=== PATIENT | male | born 1950 | race Caucasian/White ===

== ENCOUNTER 2019-11-06 14:06 | Inpatient (IN) | payer MEDICARE, OTHER, SELFPAY ==
[2019-11-06] VITALS (19 sets, daily range): BP systolic 122–163; BP diastolic 57–87; PULSE 66–89; RESP 20–41; TEMP 36.6–37.5; O2SAT 68–100; BMI 22.8
--- NOTE | ~2019-11-06 | XR_ITS ---
EXAMINATION: XR chest 2V DATE: 11/06/2019 15:29 INDICATION: Shortness of breath. TECHNIQUE: Frontal and lateral views of the chest were obtained. COMPARISON: Chest single view 06/04/2019, chest CT 06/04/2019 FINDINGS: The lungs are hyperexpanded with lucencies and architectural distortion, consistent with em physema. There are patchy airspace opacities in right upper lobe. No pleural effusion or pneumothorax . The heart size is normal. There is an old healed fracture of left clavicle. IMPRESSION: 1. Worsened airspace opacities in right upper lobe suspicious for pneumonia. Malignancy cannot be exc luded. Consider noncontrast chest CT. 2. Severe emphysema. Reviewed, dictated and finalized at location A. DRIVER CARPENTER IMPRESSION: 1. Worsened airspace opacities in right upper lobe suspicious for pneumonia. Ma lignancy cannot be excluded. Consider noncontrast chest CT. 2. Severe emphysema.
--- NOTE | ~2019-11-06 | CT_ITS ---
EXAMINATION:CT chest wo con DATE: 11/07/2019 11:14 INDICATION: Abnormal chest radiographs. TECHNIQUE: Computed tomography (CT) of the chest was performed without intravenous contrast. Automate d exposure control and iterative reconstruction technique were employed. The dose-length product (DLP ) was 172.50 mGy-cm. COMPARISON: Chest 2 views 11/06/2019, chest CT 06/04/2019, 12/06/2017 FINDINGS: There is severe emphysema. There are nodules left lung apex measuring up to 6 mm, stable fr om 12/06/2017. There is a 9 mm nodule in left lower lobe, new from 06/04/2019. There is a 10 mm nodule in left lung lower lobe that measured 5 mm on 06/04/2019. There is a new 6 mm nodule in left lower lob e. There is a chronic 4 mm nodule in left lower lobe. There is an 11 mm nodule in right lower lobe wi th central calcification, consistent with granulomatous disease. There are patchy airspace opacities and nodules in right upper lobe and superior segment right lower lobe with interval improvement. Ther e is a chronic 7 mm nodule in right lower lobe. There are multiple chronic smaller nodules in right l ower lobe. Calcified right lung nodules and calcified mediastinal lymph nodes are consistent with old granulomatous disease. No pleural effusion. The heart size is normal. No pericardial effusion. There is severe thoracic spondylosis. There is upper thoracic levoscoliosis. IMPRESSION: 1. Pulmonary nodules and airspace opacities with improvement in some areas and worsening in others, l ikely chronic infection. Noncontrast low-dose chest CT is recommended in 3 months to exclude malignan cy. 2. Severe emphysema. Reviewed, dictated and finalized at location A. OR CARE ASSISTANT IMPRESSION: 1. Pulmonary nodules and airspace opacities with improvement in some areas and worsening in others, likely chronic infection. Noncontrast low-dose chest CT is recommended in 3 months to exclude malignancy. 2. Severe emphysema.
--- NOTE | ~2019-11-06 | XR_ITS ---
EXAMINATION: XR chest 2V DATE: 11/08/2019 08:21 INDICATION: COPD and congestive heart failure presenting with cough TECHNIQUE: frontal and lateral views of the chest were obtained. COMPARISON: Chest radiograph dated 11/06/[address] dated 11/07/2019 FINDINGS: Emphysema with hyperexpansion of lungs and scattered increased lucency most prominent in the left upp er lung zone. Nodular, patchy and linear opacities in the right mid to upper lung zone. No pulmonary edema, pleural effusion or pneumothorax. The cardiomediastinal silhouette is normal. Calcified medias tinal lymph node consistent with old granulomatous disease. Old left clavicle fracture. IMPRESSION: 1. Unchanged opacities in the right mid and upper lung zone likely combination of atelectasis and inf ection although malignancy is not excluded both the nodular opacities and concur with recommendation for 3 month follow-up low-dose noncontrast chest CT. 2. Emphysema. Reviewed, dictated and finalized at location A. IOGNOMIST IMPRESSION: 1. Unchanged opacities in the right mid and upper lung zone likely combination of atelectasis and infection although malignancy is not excluded both the nodul ar opacities and concur with recommendation for 3 month follow-up low-dose nonc ontrast chest CT. 2. Emphysema.
--- NOTE | 2019-11-06 14:26 | ECG_ITS ---
Measurements Intervals [place] Rate: 80 P: 86 MN: 173 QRS: -77 QRSD: 143 T: 66 QT: 392 QTc: 452 Interpretive Statements SINUS RHYTHM INTRAVENTRICULAR CONDUCTION DELAY DELAYED PRECORDIAL R/S TRANSITION BORDERLINE ST ABNORMALITY- LATERAL LEADS BORDERLINE ECG Electronically Signed On 11-06-2019 15:09:54 [employer] BAG SEWER by Kevin Cervantes D.O.
[2019-11-06 14:58] LABS: Base Excess ABG -4.4 mmol/L (0-2); HCO3 ABG 23.5 mmol/L (23-29); Oxyhemoglobin 86.6 % (94-100); PCO2 ABG 55.2 mmHg (35-45); PO2 ABG 74.8 mmHg (75-85); Total Hemoglobin 13.9 g/dL; pH ABG 7.25 (7.35-7.45)
[2019-11-06 15:00] LABS: Hematocrit 39.7 % (37.0-46.0); Hemoglobin 12.9 g/dL (12.4-15.3); Mean Corpuscular HGB Conc 32.5 g/dL (32.0-36.0); Mean Corpuscular Hemoglobin 29.9 pg (27.0-31.0); Mean Corpuscular Volume 92.1 fL (78.0-102.0); Mean Platelet Volume 9.3 fl (8.7-11.0); Platelet Count Result 274 K/mm3 (150-420); Red Blood Count 4.31 M/mm3 (4.70-6.10); Red Cell Distribution Width 13.2 % (11.6-14.4); White Blood Count 8.6 K/mm3 (4.8-10.8)
[2019-11-06 15:01] LABS: Device NASAL CANNULA; Modified Allen's Test Pass; Site Drawn LEFT RADIAL
[2019-11-06] MEDS: ALBUTEROL SULFATE NEB 1.25 MG/3 ML INH INHALATION ×2 (15:01→20:22)
[2019-11-06 15:19] LABS: Alanine Aminotransferase 21 U/L (16-63); Albumin Level 3.5 g/dL (3.4-5.0); Alkaline Phosphatase 80 U/L (46-116); Anion Gap 13.8 mmol/L (7-16); Aspartate Amino Transferase 19 U/L (15-37); Bilirubin,Total 0.4 mg/dL (0.00-1.00); Blood Urea Nitrogen 16 mg/dL (7-18); Calcium 8.1 mg/dL (8.5-10.1); Carbon Dioxide 27 mmol/L (21-32); Chloride 93 mmol/L (98-108); Estimated CRCL calculation 74 ml/min; Estimated Glomerular Filt Rate > 60; Glucose 120 mg/dL (70-99); Osmolality Calculated 272 mOsm/kg (285-295); Potassium 3.8 mmol/L (3.5-5.1); Sodium 130 mmol/L (136-145); Total Protein 6.9 g/dL (6.4-8.2)
[2019-11-06 15:21] LABS: BNP 311 pg/mL (0-100)
[2019-11-06 15:21] LABS: Troponin I < 0.02 ng/mL (0.00-0.056)
[2019-11-06 15:23] LABS: Influenza Control Valid (Valid)
--- NOTE | 2019-11-06 15:36 | ED.SOB ---
HPI - SOB/Dyspnea General Chief Complaint: Shortness of Breath/Dyspnea Stated Complaint: sob Source: patient Mode of arrival: ambulatory Limitations: no limitations History of Present Illness HPI Narrative: 69-year-old male presents from his doctor's office after he presented to his physician with increasing shortness of breath cough is mildly productive with decreased oxygen saturations. Patient has some shortness of breath with a mild productive yellow sputum with shortness of breath with no chest pain low-grade fever and chills. Was given Solu-Medrol 125 mg while at his physician's office. Has been having symptoms that have worsened over the last couple of days, does have a history of COPD, CHF hypertension bipolar disorder. MD elicited complaint: shortness of breath and cough Pertinent past history: COPD and congestive heart failure Onset (ago): day(s) Context: recent illness and anxiety Severity: moderate Exacerbating factors: coughing and inspiration Relieving factors: oxygen, rest and bronchodilators Known history of: COPD and congestive heart failure Related Data Home Medications Medication Instructions Recorded Confirmed acetaminophen 500 mg capsule 500 mg PO Q6H 10/17/19 11/06/19 albuterol sulfate 90 mcg/actuation 1 inhalation INHALATION Q4H 10/17/19 11/06/19 aerosol inhaler amitriptyline 25 mg tablet 25 mg PO ONCE 10/17/19 11/06/19 aspirin 81 mg tablet,delayed 81 mg PO DAILY 10/17/19 11/06/19 release atorvastatin 10 mg tablet 10 mg PO DAILY 10/17/19 11/06/19 carvedilol 12.5 mg tablet 12.5 mg PO BID tablet 10/17/19 11/06/19 cyclobenzaprine 10 mg tablet 10 mg PO TID 10/17/19 11/06/19 diclofenac sodium 75 mg 75 mg PO BID 10/17/19 11/06/19 tablet,delayed release diphenhydramine HCl 50 mg capsule 50 mg PO Q6H 10/17/19 11/06/19 fluticasone 500 mcg-salmeterol 50 1 inhalation INHALATION Q12H 10/17/19 11/06/19 mcg/dose blistr powdr for inhalation fluticasone fur. 100 mcg-umeclid 1 inhalation INHALATION DAILY 10/17/19 11/06/19 62.5 mcg-vilant 25 mcg inhalat.powder fluticasone propionate 50 1 spray NASAL DAILY 10/17/19 11/06/19 mcg/actuation nasal spray,suspension folic acid 1 mg tablet 1 mg PO DAILY 10/17/19 11/06/19 lisinopril 20 mg tablet 20 mg PO DAILY 10/17/19 11/06/19 menthol 4 % topical gel 1 applic TOPICAL DAILY 10/17/19 11/06/19 onabotulinumtoxinA 100 unit 200 unit IM .Q 3 mo each 10/17/19 11/06/19 solution for injection risperidone 2 mg tablet 2 mg PO BID 10/17/19 11/06/19 sumatriptan succinate 100 mg tablet 100 mg PO ONCE 10/17/19 11/06/19 topiramate 25 mg capsule,extended 25 mg PO DAILY 10/17/19 11/06/19 release 24 hr verapamil 80 mg tablet 80 mg PO DAILY 10/17/19 11/06/19 famotidine 20 mg tablet 20 mg PO BID tablet 10/20/19 11/06/19 Allergies Allergy/AdvReac Type Severity Reaction Status Date / Time No Known Allergies Allergy Verified 10/20/19 12:57 Review of Systems Review of Systems: All systems reviewed & are unremarkable except as noted in HPI and below PMFSH Past Medical History Medical History Chronic obstructive pulmonary disease, unspecified Chronic systolic heart failure [place] (dyspnea on exertion) Dyslipidemia Essential hypertension Smoking Unspecified systolic (congestive) heart failure Social History Social History Smoking status: Smoker, status unknown Exam Const: General: no acute distress, alert and ill appearing Orientation/consciousness: patient oriented x3 HENMT: Head: normal to inspection Eyes: Conjunctivae: conjunctivae normal Pupils: Equal, round and reactive pupils present Neck: Neck: normal visual inspection and no lymphadenopathy Chest: Chest palpation & inspection: normal inspection of the chest and abnormal inspection of the chest Resp: Effort & Inspection: tachypneic Auscultation: wheezes and diminished lung sounds
[2019-11-06] MEDS: FUROSEMIDE INJ 40 MG/4 ML VIAL IV PUSH (15:53)
--- NOTE | 2019-11-06 15:53 | PC.NURSE ---
RN REQUESTED INPATIENT ROOM FROM [facility] AT 1545. ROOM 208 PROVIDED. REGISTRATION NOTIFIED. AWAITING COMPLETED ORDERS BY ERP BEFORE CALLING REPORT.
--- NOTE | 2019-11-06 16:30 | PC.NURSE ---
Patient admitted to floor from ED, brought up per wheelchair. O2 @ 2L per nasal cannula. Patient transferred self to bed. Patient oriented to room and call light. Patient in bed with head of bed elevated.
--- NOTE | 2019-11-06 16:39 | PC.NURSE ---
UNABLE TO ENTER STOP TIME FOR IV ANTIBIOTICS DUE TO PT BEING TRANSFERRED TO ROOM 208 WHILE INFUSING. PLEASE SEE MEDICAL-RANGE MOUNTER CHARTING FOR STOP TIME.
[2019-11-06] MEDS: FAMOTIDINE 20 MG TABLET PO (18:01)
[2019-11-06] MEDS: risperiDONE 1 MG TABLET 2 MG PO (18:01)
[2019-11-06] MEDS: methylPREDNISolone SOD SUCC 40 MG VIAL 60 MG IV PUSH ×2 (18:02→21:29)
[2019-11-06] MEDS: DICLOFENAC SOD 75 MG TABLET.EC PO (18:02)
[2019-11-06] MEDS: carvediloL 12.5 MG TABLET PO (18:02)
[2019-11-06] MEDS: AMITRIPTYLINE HCL 25 MG TABLET PO (20:38)
[2019-11-06] MEDS: OSELTAMIVIR PHOSPHATE 75 MG CAP PO (20:38)
--- NOTE | 2019-11-06 21:40 | PC.NURSE ---
O2 continues 2L per nc Telemetry SR.
[2019-11-07] VITALS (22 sets, daily range): BP systolic 118–147; BP diastolic 60–81; PULSE 64–108; RESP 13–24; TEMP 36.6–37.2; O2SAT 91–98
[2019-11-07] MEDS: ALBUTEROL SULFATE NEB 1.25 MG/3 ML INH INHALATION (05:43)
--- NOTE | 2019-11-07 08:01 | PC.NURSE ---
SITTING UP IN BED EATING BREAKFAST, [place] NOTED, WITH SOME EXPIRATORY WHEEZE, OXYGEN ON AT 2L NC
[2019-11-07] MEDS: FAMOTIDINE 20 MG TABLET PO ×2 (08:34→16:54)
[2019-11-07] MEDS: ASPIRIN 81 MG ENTERIC TABLET PO (08:34)
[2019-11-07] MEDS: lisinopriL 20 MG TABLET PO (08:34)
[2019-11-07] MEDS: OSELTAMIVIR PHOSPHATE 75 MG CAP PO ×2 (08:34→21:03)
[2019-11-07] MEDS: ATORVASTATIN 10 MG TABLET PO (08:35)
[2019-11-07] MEDS: risperiDONE 1 MG TABLET 2 MG PO ×2 (08:35→16:54)
[2019-11-07] MEDS: carvediloL 12.5 MG TABLET PO ×2 (08:35→16:54)
[2019-11-07] MEDS: FOLIC ACID 1 MG TABLET PO (08:36)
[2019-11-07] MEDS: TOPIRAMATE 25 MG TABLET PO (08:36)
[2019-11-07] MEDS: DICLOFENAC SOD 75 MG TABLET.EC PO ×2 (08:36→16:54)
[2019-11-07] MEDS: methylPREDNISolone SOD SUCC 125 MG VIAL 60 MG IV PUSH (09:01)
--- NOTE | 2019-11-07 09:02 | PC.NURSE ---
Addendum entered by Nia Diallo RN 11/07/19 09:02: WRONG PATIENT CHART Original Note: DOES OPEN EYES TO VERBAL STIMULATION, NON VERBAL, DOES MOAN OCCASSIONALLY, FLUIDS INFUSING, TELEMETRY ST
--- NOTE | 2019-11-07 09:03 | PC.NURSE ---
LOOSE COUGH NOTED, [place] NOTED WITH MOVEMENT IN BED, TELEMETRY ST, OXYGEN ON AT 2L NC
[2019-11-07 09:14] LABS: Hematocrit 37.6 % (37.0-46.0); Hemoglobin 12.8 g/dL (12.4-15.3); Immature Granulocyte Absolute 0.03 K/mm3 (0.00-0.00); Immature Granulocyte Percent A 0.4 % (0.0-0.0); Lymphocytes Absolute Auto 0.42 K/mm3 (1.10-4.50); Lymphocytes Percent Auto 5.4 % (18.0-42.0); Mean Corpuscular Hemoglobin 30.5 pg (27.0-31.0); Mean Corpuscular Volume 89.5 fL (78.0-102.0); Mean Platelet Volume 9.3 fl (8.7-11.0); Monocytes Absolute Auto 0.45 K/mm3 (0.10-0.90); Monocytes Percent Auto 5.8 % (2.0-11.0); Neutrophils Absolute Auto 6.9 K/mm3 (1.7-7.2); Neutrophils Percent Auto 88.4 % (50.0-70.0); Platelet Count Result 274 K/mm3 (150-420); Red Cell Distribution Width 13.2 % (11.6-14.4); White Blood Count 7.8 K/mm3 (4.8-10.8)
[2019-11-07 09:30] LABS: Alanine Aminotransferase 22 U/L (16-63); Albumin Level 3.2 g/dL (3.4-5.0); Alkaline Phosphatase 73 U/L (46-116); Aspartate Amino Transferase 23 U/L (15-37); Bilirubin,Total 0.3 mg/dL (0.00-1.00); Blood Urea Nitrogen 19 mg/dL (7-18); Calcium 8.2 mg/dL (8.5-10.1); Carbon Dioxide 30 mmol/L (21-32); Chloride 96 mmol/L (98-108); Estimated CRCL calculation 78 ml/min; Estimated Glomerular Filt Rate > 60; Glucose 154 mg/dL (70-99); Osmolality Calculated 285 mOsm/kg (285-295); Sodium 135 mmol/L (136-145); Total Protein 6.8 g/dL (6.4-8.2)
[2019-11-07 09:33] LABS: BNP 288 pg/mL (0-100)
--- NOTE | 2019-11-07 10:59 | PC.NURSE ---
To imaging via WC, mask in place
--- NOTE | 2019-11-07 11:09 | PC.NURSE ---
Returned from imaging, cardiopulmonary in room with patient
[2019-11-07 11:20] LABS: Base Excess ABG -1.4 mmol/L (0-2); Oxygen Content ABG 18.9 %vol (16.0-22.0); Oxygen Saturation ABG 96.3 % (95-97); Oxyhemoglobin 94.1 % (94-100); PCO2 ABG 69.9 mmHg (35-45); PO2 ABG 88.7 mmHg (75-85); Site Drawn LEFT RADIAL; Total Hemoglobin 14.2 g/dL; pH ABG 7.22 (7.35-7.45)
[2019-11-07 11:21] LABS: Device NASAL CANNULA; Modified Allen's Test Pass
--- NOTE | 2019-11-07 11:30 | PC.NURSE ---
Cardio at the bedside, attempt airvo at this time
--- NOTE | 2019-11-07 12:05 | PC.NURSE ---
Lunch tray held at this time, wheezing some worse and color dusky, cardio in room and placing on bipap, more comfortable with bipap in place, telemetry SR 90
--- NOTE | 2019-11-07 12:51 | PM.IMHP ---
H&P: HPI History of Present Illness Chief complaint: sob <PRERNA Cortes - Last Filed: 11/07/19 13:52> Narrative: Lui Goodwin is a 69 year old male that presented to the ED with complaints of shortness of breath and dyspnea patient has a past medical history of COPD, systolic congestive heart failure, dyspnea exertion, dyslipidemia, essential hypertension, and smoking dependant patient is being admitted for pneumonia ,influenza A and COPD Exacerbation. patient was extremely short of breath with labored breathing and was unable to give me any history. According to the notes patient presented to his doctor's office yesterday due to his shortness of breath, dyspnea ,productive cough with yellow sputum, low-grade fever and chills he was given Solu-Medrol 125 mg at his doctor's office. his symptoms have worsened over the last couple days so he decided to come to the ED. While in the ED a chest x-ray was completed that indicated severe emphysema and suspicious of pneumonia he also tested positive influenza a, his BNP was elevated to 311 with an abnormal blood gas pH is 7.25, CO2 is 55.2, PO2 is 74.8 and bicarb at 23.5. patient's current vital signs are 366, 93, 20, 91% 2 L nasal cannula and 118/75. Patient is currently on Rocephin and Tamiflu. Patient does appear to be in respiratory distress will do repeat ABG possibly high-flow oxygen or BiPAP, steroids with cough medication with the decongestion added. I will closely monitor this patient. <PRERNA Cortes - Last Filed: 11/07/19 13:52> Review of Systems Review of Systems: ROS unobtainable: unobtainable due to mental condition <PRERNA Cortes - Last Filed: 11/07/19 13:52> [facility] Past Medical History Medical History: Medical History Chronic obstructive pulmonary disease, unspecified Chronic systolic heart failure [place] (dyspnea on exertion) Dyslipidemia Essential hypertension Smoking Unspecified systolic (congestive) heart failure <PRERNA Cortes - Last Filed: 11/07/19 13:52> Social History Social History: Social History Smoking packs per day: 0.5 Smoking cigarettes per day: 10.0 Years smoked: 50 Smoking pack-years: 25.00 Smoking status: Current every day smoker Tobacco type: cigarettes Alcohol intake: former Drinks per week: 0 Substance use: never Gender identity (if verbalized by the patient): Male Spiritual care concerns: No Agree to blood products: Yes <Belen Webb, DELANEY-Deborah - Last Filed: 11/07/19 13:52> Meds Home Medications and Allergies Home medications: Home Medications Medication Instructions Recorded Confirmed Type acetaminophen 500 mg capsule 500 mg PO Q6H 10/17/19 11/06/19 History albuterol sulfate 90 mcg/actuation 1 inhalation INHALATION Q4H 10/17/19 11/06/19 History aerosol inhaler amitriptyline 25 mg tablet 25 mg PO ONCE 10/17/19 11/06/19 History aspirin 81 mg tablet,delayed 81 mg PO DAILY 10/17/19 11/06/19 History release atorvastatin 10 mg tablet 10 mg PO DAILY 10/17/19 11/06/19 History carvedilol 12.5 mg tablet 12.5 mg PO BID tablet 10/17/19 11/06/19 History cyclobenzaprine 10 mg tablet 10 mg PO TID 10/17/19 11/06/19 History diclofenac sodium 75 mg 75 mg PO BID 10/17/19 11/06/19 History tablet,delayed release diphenhydramine HCl 50 mg capsule 50 mg PO Q6H 10/17/19 11/06/19 History fluticasone 500 mcg-salmeterol 50 1 inhalation INHALATION Q12H 10/17/19 11/06/19 History mcg/dose blistr powdr for inhalation fluticasone fur. 100 mcg-umeclid 1 inhalation INHALATION DAILY 10/17/19 11/06/19 History 62.5 mcg-vilant 25 mcg inhalat.powder fluticasone propionate 50 1 spray NASAL DAILY 10/17/19 11/06/19 History mcg/actuation nasal spray,suspension folic acid 1 mg tablet 1 mg PO DAILY 10/17/19 11/06/19 History lisinopril 20 mg ta
--- NOTE | 2019-11-07 12:55 | PC.NURSE ---
color pink, warm and dry, bipap in place, resting more comfortable, no change in settings
[2019-11-07 12:58] LABS: Base Excess ABG 3.2 mmol/L (0-2); HCO3 ABG 31.3 mmol/L (23-29); Oxygen Content ABG 18.1 %vol (16.0-22.0); Oxygen Saturation ABG 94.4 % (95-97); Oxyhemoglobin 92.3 % (94-100); PCO2 ABG 63.6 mmHg (35-45); PO2 ABG 71.1 mmHg (75-85); Total Hemoglobin 13.9 g/dL; pH ABG 7.31 (7.35-7.45)
[2019-11-07 12:59] LABS: Device BIPAP; Modified Allen's Test Pass; Site Drawn LEFT RADIAL
[2019-11-07] MEDS: methylPREDNISolone SOD SUCC 125 MG VIAL IV PUSH ×2 (13:05→17:51)
[2019-11-07] MEDS: FUROSEMIDE INJ 40 MG/4 ML VIAL IV PUSH (13:05)
--- NOTE | 2019-11-07 13:05 | PC.NURSE ---
lasix 40mg IV and solumedrol 125mg given IV as ordered
--- NOTE | 2019-11-07 13:11 | PC.NURSE ---
no further wheezing at this time, increased air movement per auscultation
--- NOTE | 2019-11-07 13:40 | PC.NURSE ---
Eating lunch, bipap removed and on NC at this time, more talkative
--- NOTE | 2019-11-07 14:15 | PC.NURSE ---
Finished with lunch, bipap mask re applied, no change in settings, cardio at the bedside checking patient
[2019-11-07] MEDS: BENZONATATE 100 MG CAPSULE 200 MG PO ×2 (14:23→16:53)
[2019-11-07] MEDS: ALBUTEROL SULFATE NEB 2.5 MG/3 ML INH INHALATION (14:25)
[2019-11-07] MEDS: ENOXAPARIN 40 MG/0.4 ML SYRINGE SUB-Q (14:27)
--- NOTE | 2019-11-07 14:36 | PC.NURSE ---
Resting with HOB elevated, just finished neb treatment, placed back on bipap
[2019-11-07] MEDS: VERAPAMIL HCL 80 MG TABLET PO (17:51)
[2019-11-07] MEDS: IPRATROPIUM 0.5 MG/ALBUTEROL SULFATE 2.5 MG AMPUL.NEB 3 ML INHALATION (17:51)
[2019-11-07] MEDS: BUDESONIDE/FORMOTEROL (*SP) 160-4.5 MCG 6 GM INH 2 PUFF INHALATION (17:51)
[2019-11-07] MEDS: AMITRIPTYLINE HCL 25 MG TABLET PO (21:03)
[2019-11-08] VITALS (19 sets, daily range): BP systolic 129–147; BP diastolic 65–77; PULSE 56–95; RESP 18–20; TEMP 36.9–37.3; O2SAT 93–95
[2019-11-08] MEDS: IPRATROPIUM 0.5 MG/ALBUTEROL SULFATE 2.5 MG AMPUL.NEB 3 ML INHALATION ×4 (00:09→18:18)
[2019-11-08] MEDS: methylPREDNISolone SOD SUCC 125 MG VIAL IV PUSH ×2 (00:09→09:09)
[2019-11-08 05:31] LABS: Hemoglobin 13.2 g/dL (12.4-15.3); Mean Corpuscular HGB Conc 33.8 g/dL (32.0-36.0); Mean Corpuscular Hemoglobin 30.8 pg (27.0-31.0); Mean Corpuscular Volume 90.9 fL (78.0-102.0); Mean Platelet Volume 9.3 fl (8.7-11.0); Platelet Count Result 280 K/mm3 (150-420); Red Blood Count 4.29 M/mm3 (4.70-6.10); Red Cell Distribution Width 13.2 % (11.6-14.4); White Blood Count 9.4 K/mm3 (4.8-10.8)
[2019-11-08 05:45] LABS: Alanine Aminotransferase 23 U/L (16-63); Albumin Level 3.2 g/dL (3.4-5.0); Alkaline Phosphatase 68 U/L (46-116); Anion Gap 9.1 mmol/L (7-16); Aspartate Amino Transferase 21 U/L (15-37); Bilirubin,Total 0.3 mg/dL (0.00-1.00); Blood Urea Nitrogen 24 mg/dL (7-18); Calcium 8.4 mg/dL (8.5-10.1); Carbon Dioxide 35 mmol/L (21-32); Chloride 97 mmol/L (98-108); Estimated CRCL calculation 79 ml/min; Estimated Glomerular Filt Rate > 60; Glucose 134 mg/dL (70-99); Osmolality Calculated 290 mOsm/kg (285-295); Potassium 4.1 mmol/L (3.5-5.1); Sodium 137 mmol/L (136-145); Total Protein 6.7 g/dL (6.4-8.2)
[2019-11-08 05:48] LABS: Lactic Acid Reflex 1.3 mmol/L (0.4-2.0)
[2019-11-08 05:49] LABS: BNP 239 pg/mL (0-100)
--- NOTE | 2019-11-08 06:58 | P.PNCROSS_ITS ---
Event Note Event Note Event Note: Late entry. Pt. seen on 11/07/2019 For this patient encounter, I reviewed the INTEL RECRUITER or PA documentation, treatment plan, and medical decision making; and I had [id number] time with this patient. Pt laying supine, labored respiration, tachypnea, audible wheezes, decreased breath sounds with scattered wheezes. Agree with trial of BiPap
--- NOTE | 2019-11-08 06:58 | PM.EVENT ---
Event Note Event Note Event Note: Late entry. Pt. seen on 11/07/2019 For this patient encounter, I reviewed the WHITE MIXING OPERATOR or PA documentation, treatment plan, and medical decision making; and I had [id number] time with this patient. Pt laying supine, labored respiration, tachypnea, audible wheezes, decreased breath sounds with scattered wheezes. Agree with trial of BiPap
--- NOTE | 2019-11-08 08:10 | PC.NURSE ---
WAnting to go home, feeling better, color improved, slight schrader noted, oxygen on at 4L NC
[2019-11-08] MEDS: BUDESONIDE/FORMOTEROL (*SP) 160-4.5 MCG 6 GM INH 2 PUFF INHALATION ×2 (08:46→17:18)
[2019-11-08] MEDS: VERAPAMIL HCL 80 MG TABLET PO ×2 (08:46→17:20)
[2019-11-08] MEDS: FAMOTIDINE 20 MG TABLET PO ×2 (08:47→17:19)
[2019-11-08] MEDS: OSELTAMIVIR PHOSPHATE 75 MG CAP PO ×2 (08:47→20:55)
[2019-11-08] MEDS: FOLIC ACID 1 MG TABLET PO (08:48)
[2019-11-08] MEDS: lisinopriL 20 MG TABLET PO (08:48)
[2019-11-08] MEDS: BENZONATATE 100 MG CAPSULE 200 MG PO ×3 (08:48→17:20)
[2019-11-08] MEDS: FUROSEMIDE 40 MG TABLET PO (08:49)
[2019-11-08] MEDS: risperiDONE 1 MG TABLET 2 MG PO ×2 (08:49→17:19)
[2019-11-08] MEDS: TOPIRAMATE 25 MG TABLET PO (08:49)
[2019-11-08] MEDS: ASPIRIN 81 MG ENTERIC TABLET PO (08:50)
[2019-11-08] MEDS: carvediloL 12.5 MG TABLET PO ×2 (08:50→17:19)
[2019-11-08] MEDS: DICLOFENAC SOD 75 MG TABLET.EC PO ×2 (08:50→17:19)
[2019-11-08] MEDS: ATORVASTATIN 10 MG TABLET PO (08:50)
--- NOTE | 2019-11-08 11:41 | PM.IMPN ---
Progress Note: A&P Assessment and Plan (1) Pneumonia: Qualifiers: Laterality: right Lung location: upper lobe of lung Pneumonia type: due to unspecified organism Qualified Code(s): J18.9 - Pneumonia, unspecified organism Code(s): J18.9 - Pneumonia, unspecified organism Status: Acute Assessment and Plan: unstable chest x-ray suspicious of pneumonia - blood cultures pending - continue Rocephin - wbc's within normal limits, patient currently afebrile - patient on BiPAP overnigh with improvement on BiPAP. currently on NC - will repeat CBC in the a.m. - will continue to monitor vital signs for fever - Tylenol added for fever - continue duo nebulizer with p.r.n. albuterol treatments - continue use of steroids - continue anti the congestion and cough medication -. Unchanged opacities in the right mid and upper lung zone likely combination of atelectasis and infection although malignancy is not excluded both the nodular opacities and concur with recommendation for 3 month follow-up low-dose noncontrast chest CT. 2. Emphysema (2) Influenza A: Code(s): J10.1 - Influenza due to other identified influenza virus with other respiratory manifestations Status: Acute Assessment and Plan: continue Tamiflu and till November 11 - continue droplet isolation (3) Pulmonary nodule: Code(s): R91.1 - Solitary pulmonary nodule Status: Acute Assessment and Plan: possibly secondary to infection - chest x-ray indicates worsening opacities in right upper lobe suspicious for pneumonia malignancy cannot be excluded considered non contrast chest CT and severe emphysema - CT indication pulmonary nodules and airspace opacities with improvement in some areas and worsening in others, likely chronic infection. Noncontrast low-dose chest CT is recommended in 3 months to exclude malignancy and severe emphysema. - Continue to treat pneumonia and influenza a. - Patient will need to follow-up with PCP in [address] (4) Smoking: Code(s): F17.200 - Nicotine dependence, unspecified, uncomplicated Status: Acute Assessment and Plan: patient educated on smoking sensation - continue use of nicotine patch (5) Chronic obstructive pulmonary disease, unspecified: Code(s): J44.9 - Chronic obstructive pulmonary disease, unspecified Status: Acute Assessment and Plan: unstable worsening due to pneumonia and influenza chest x-ray suspicious of pneumonia - blood cultures pending - cont Rocephin - wbc's within normal limits, patient currently afebrile - will repeat CBC in the a.m. - will continue to monitor vital signs for fever - Tylenol added for fever - continue duo nebulizer with p.r.n. albuterol treatments - continue use of steroids - continue anti the congestion and cough medication - (6) Essential hypertension: Code(s): I10 - Essential (primary) hypertension Status: Acute Assessment and Plan: blood pressurestable continue lisinopril and carvedilol - continue vital signs as ordered - will adjust medication as needed (7) Chronic systolic heart failure: Code(s): I50.22 - Chronic systolic (congestive) heart failure Status: Acute Assessment and Plan: uncompensated BNP on admission 311 Lasix given in ER, currently BNP is 288 - cont scheduled Lasix , Patient will discharge home low-dose Lasix - monitor I&Os - weight patient daily (8) Acute respiratory distress: Code(s): R06.03 - Acute respiratory distress Status: Acute Assessment and Plan: possibly secondary to pneumonia, influenza a and chronic COPD unstable chest x-ray suspicious of pneumonia - blood cultures pending - continue Rocephin - wbc's within normal limits, patient currently afebrile - patient use BiPAP overnight with improvements currently on nasal cannula - will repeat CBC in the a.m. - will continue to monito
[2019-11-08] MEDS: ENOXAPARIN 40 MG/0.4 ML SYRINGE SUB-Q (13:12)
[2019-11-08] MEDS: methylPREDNISolone SOD SUCC 125 MG VIAL 80 MG IV PUSH ×2 (13:12→20:56)
--- NOTE | 2019-11-08 15:50 | PC.NURSE ---
Resting in bed, no acute distress, telemetry SR 60's, oxygen on at 2L NC
--- NOTE | 2019-11-08 17:11 | PC.NURSE ---
SN emptied 600 cc of clear yellow urine from urinal.
--- NOTE | 2019-11-08 18:14 | PC.NURSE ---
Remains on 2L NC, no acute distress, continues to have loose productive cough,
[2019-11-08] MEDS: AMITRIPTYLINE HCL 25 MG TABLET PO (20:55)
--- NOTE | 2019-11-08 21:07 | PC.NURSE ---
Pt refuses to wear bipap machine at this time, discussed with him the need for it and educated him on signs and symptoms that would require need for the bipap
[2019-11-09] VITALS (15 sets, daily range): BP systolic 113–133; BP diastolic 67–86; PULSE 53–92; RESP 18–20; TEMP 36.9; O2SAT 82–97
[2019-11-09] MEDS: IPRATROPIUM 0.5 MG/ALBUTEROL SULFATE 2.5 MG AMPUL.NEB 3 ML INHALATION ×2 (00:04→05:32)
[2019-11-09 05:39] LABS: Hematocrit 39.6 % (37.0-46.0); Hemoglobin 13.2 g/dL (12.4-15.3); Mean Corpuscular HGB Conc 33.3 g/dL (32.0-36.0); Mean Corpuscular Hemoglobin 30.3 pg (27.0-31.0); Mean Corpuscular Volume 90.8 fL (78.0-102.0); Mean Platelet Volume 9.4 fl (8.7-11.0); Platelet Count Result 304 K/mm3 (150-420); Red Blood Count 4.36 M/mm3 (4.70-6.10); Red Cell Distribution Width 13.2 % (11.6-14.4); White Blood Count 11.1 K/mm3 (4.8-10.8)
[2019-11-09] MEDS: methylPREDNISolone SOD SUCC 125 MG VIAL 80 MG IV PUSH ×2 (05:49→13:09)
[2019-11-09] MEDS: BUDESONIDE/FORMOTEROL (*SP) 160-4.5 MCG 6 GM INH 2 PUFF INHALATION (05:50)
[2019-11-09 05:53] LABS: Alanine Aminotransferase 25 U/L (16-63); Albumin Level 3.1 g/dL (3.4-5.0); Alkaline Phosphatase 61 U/L (46-116); Aspartate Amino Transferase 21 U/L (15-37); Bilirubin,Total 0.3 mg/dL (0.00-1.00); Blood Urea Nitrogen 29 mg/dL (7-18); Calcium 8.6 mg/dL (8.5-10.1); Carbon Dioxide 36 mmol/L (21-32); Chloride 98 mmol/L (98-108); Estimated CRCL calculation 76 ml/min; Estimated Glomerular Filt Rate > 60; Glucose 123 mg/dL (70-99); Osmolality Calculated 292 mOsm/kg (285-295); Sodium 138 mmol/L (136-145); Total Protein 6.1 g/dL (6.4-8.2)
[2019-11-09 05:55] LABS: BNP 272 pg/mL (0-100)
--- NOTE | 2019-11-09 07:45 | PC.NURSE ---
Oxygen removed at this time, advised to make sure to call us if felt SOB
--- NOTE | 2019-11-09 08:30 | PC.NURSE ---
room air sat 82%, denies sob at rest, no distress noted, states feeling better
[2019-11-09] MEDS: VERAPAMIL HCL 80 MG TABLET PO (09:22)
[2019-11-09] MEDS: FAMOTIDINE 20 MG TABLET PO (09:23)
[2019-11-09] MEDS: FOLIC ACID 1 MG TABLET PO (09:23)
[2019-11-09] MEDS: OSELTAMIVIR PHOSPHATE 75 MG CAP PO (09:23)
[2019-11-09] MEDS: ASPIRIN 81 MG ENTERIC TABLET PO (09:23)
[2019-11-09] MEDS: lisinopriL 20 MG TABLET PO (09:23)
--- NOTE | 2019-11-09 09:23 | HOMEO2EVAL ---
Home Oxygen Evaluation RC: Home Oxygen (O2) Evaluation Start: 11/09/19 08:43 Freq: ONCE Status: Active Protocol: RPE Activity Type Activity Date Activity User E-Sign Co-Sign Detail Recorded Client Recorded Date Recorded By Document 11/09/19 09:05 SJB [id number] 11/09/19 09:23 SJB Document 11/09/19 09:08 SJB [id number] 11/09/19 09:23 SJB Document 11/09/19 09:10 SJB [id number] 11/09/19 09:23 SJB Document 11/09/19 09:17 SJB [id number] 11/09/19 09:23 SJB 11/09/19 11/09/19 11/09/19 09:05 09:08 09:10 Home O2 Evaluation Test Phase Resting Resting Resting Oxygen Delivery Room Air Nasal Cannula Nasal Cannula Oxygen Flow Rate (L/min) 2 3 Pulse Oximetry (90-100 %) 84 L 88 L 92 Pulse Rate (60-100 beats/min) 80 78 74 Activity Tolerance Rating of Perceived Dyspnea (PD) Rate of Perceived Exertion (PE) Ambulation Distance (feet) Home Oxygen Evaluation Comments Will increase Will begin walk oxygen to 3 lpm on 3 lpm at rest prior oxygen. to walk Treatment Charges O2 Evaluation 11/09/19 09:17 Home O2 Evaluation Test Phase Exercise Oxygen Delivery Oxygen Flow Rate (L/min) 3 Pulse Oximetry (90-100 %) 93 Pulse Rate (60-100 beats/min) 92 Activity Tolerance Good Rating of Perceived Dyspnea (PD) +2 Mild, Some Difficulty, Noticeable to the Observer Rate of Perceived Exertion (PE) 12 Ambulation Distance (feet) 375 Home Oxygen Evaluation Comments Pt walked approx 375 ft on 3 lpm with sp02s staying between 92-94% Nadia well. PLB encouraged. Treatment Charges
[2019-11-09] MEDS: BENZONATATE 100 MG CAPSULE 200 MG PO ×2 (09:24→13:10)
[2019-11-09] MEDS: risperiDONE 1 MG TABLET 2 MG PO (09:24)
[2019-11-09] MEDS: carvediloL 12.5 MG TABLET PO (09:25)
[2019-11-09] MEDS: DICLOFENAC SOD 75 MG TABLET.EC PO (09:25)
[2019-11-09] MEDS: FUROSEMIDE 40 MG TABLET PO (09:25)
[2019-11-09] MEDS: TOPIRAMATE 25 MG TABLET PO (09:25)
[2019-11-09] MEDS: ATORVASTATIN 10 MG TABLET PO (09:25)
--- NOTE | 2019-11-09 11:30 | PC.NURSE ---
Doesn't wish to stay another night, refusing home oxygen set up, states feeling better, hospitalist and physician aware
--- NOTE | 2019-11-09 12:11 | PM.DS ---
DS: Diagnosis Admitting Diagnosis Admitting Diagnosis: Chronic obstructive pulmonary disease with (acute) exacerbation Discharge Diagnosis (1) Pneumonia: Qualifiers: Laterality: right Lung location: upper lobe of lung Pneumonia type: due to unspecified organism Qualified Code(s): J18.9 - Pneumonia, unspecified organism Code(s): J18.9 - Pneumonia, unspecified organism Status: Acute Assessment and Plan: unstable chest x-ray suspicious of pneumonia - patient will discharged against medical advice will discharge him with antibiotics, decongestants, cough suppressants in prednisone - and wound to get a repeat CT in 3 months -. Unchanged opacities in the right mid and upper lung zone likely combination of atelectasis and infection although malignancy is not excluded both the nodular opacities and concur with recommendation for 3 month follow-up low-dose noncontrast chest CT. 2. Emphysema (2) Influenza A: Code(s): J10.1 - Influenza due to other identified influenza virus with other respiratory manifestations Status: Acute Assessment and Plan: patient will discharge withTamiflu and till November 11 (3) Pulmonary nodule: Code(s): R91.1 - Solitary pulmonary nodule Status: Acute Assessment and Plan: possibly secondary to infection - chest x-ray indicates worsening opacities in right upper lobe suspicious for pneumonia malignancy cannot be excluded considered non contrast chest CT and severe emphysema - CT indication pulmonary nodules and airspace opacities with improvement in some areas and worsening in others, likely chronic infection. Noncontrast low-dose chest CT is recommended in 3 months to exclude malignancy and severe emphysema. - Continue to treat pneumonia and influenza a. - Patient will need to follow-up with PCP in [address] (4) Smoking: Code(s): F17.200 - Nicotine dependence, unspecified, uncomplicated Status: Acute Assessment and Plan: patient educated on smoking sensation - patient refused nicotine patch (5) Chronic obstructive pulmonary disease, unspecified: Code(s): J44.9 - Chronic obstructive pulmonary disease, unspecified Status: Acute Assessment and Plan: unstable worsening due to pneumonia and influenza - home O2 indicates that patient needs 3 L nasal cannula to stay above 90%, patient refuses to use oxygen and will leave AMA today chest x-ray suspicious of pneumonia - patient will discharge with antibiotics, Tamiflu, steroids, D congestion and cough suppressant - he has inhalers at his facility that he refuses to use - (6) Essential hypertension: Code(s): I10 - Essential (primary) hypertension Status: Acute Assessment and Plan: blood pressurestable continue lisinopril and carvedilol (7) Chronic systolic heart failure: Code(s): I50.22 - Chronic systolic (congestive) heart failure Status: Acute Assessment and Plan: uncompensated BNP on admission 311 - patient will discharge with Lasix and potassium - labs ordered for 1 week to monitor renal function and potassium level - results sent to primary care physician - patient instructed to make an appointment with primary care physician in 1-2 weeks (8) Acute respiratory distress: Code(s): R06.03 - Acute respiratory distress Status: Acute Assessment and Plan: possibly secondary to pneumonia, influenza a and chronic COPD unstable chest x-ray suspicious of pneumonia refer to pneumonia, influenza and COPD DS: Summary Hospital Course Hospital Course: patient admitted 11/07/2019 this is the H&P note Lui Goodwin is a 69 year old male that presented to the ED with complaints of shortness of breath and dyspnea patient has a past medical history of COPD, systolic congestive heart failure, dyspnea exertion, dyslipidemia, essential hypertension, and smoki
--- NOTE | 2019-11-09 13:18 | PC.NURSE ---
saline lock removed in tact from RAC, pressure dressing applied, telemetry removed, AMA formed was signed, awaiting ride home
--- NOTE | 2019-11-09 13:28 | PC.NURSE ---
1140 Patient doesn't want to stay in hospital and doesn't not want us to order home O2 for him which he qualifies for. Patient informed of rights and that is wanted to go home would have to leave against Medical Advice. Patient in agreement and form signed and witness.
--- NOTE | 2019-11-09 14:25 | PC.NURSE ---
Discharge to home via wheel chair, aide from skilled nursing care here for patient, reviewed discharge instructions and medications with patient
--- NOTE | 2019-11-09 15:54 | PM.EVENT ---
Event Note Event Note Event Note: 69-year-old man with COPD admitted for shortness of breath, CAP and influenza 3 days ago. Still requiring 2 L by nasal cannula this morning but states that his breathing is much better. He denies chest pain, nausea vomiting, and sweating. H SpO2 is 83% on room air. Began process by which we get him home oxygen but the patient refused and has been refusing home nebs and treatments at assisted living. He wants to sign out. Very mild increase work of breathing with late expiratory wheezing. Decreased breath sounds throughout and poor air movement. Regular rate and rhythm without murmur. No extremity edema. Patient has pad of his need for further treatment was to sign out AMA and understands the complications that could present including respiratory failure and . He will be discharged on steroids antibiotics and inhalers And has instructions to follow up very soon with his PCP.
--- NOTE | 2019-11-10 12:58 | PC.NURSE ---
Discharge call back [phone] Spoke with [facility], no questions at this time. All discharge instructions given were understood.
== END 2019-11-09 14:25 | disposition left against medical advice (07) | DRG 193 ==
LOC: CHSED 15:55 → CHS2ND 16:11
PROVIDERS: Nurse Practitioner; Admitting Provider Emergency Medicine; Emergency Provider Emergency Medicine; PCP Internal Medicine; Visit Provider Emergency Medicine
DX: J10.00 Influenza due to other identified influenza virus with unspecified type of pneumonia; J18.9 Pneumonia, unspecified organism; I11.0 Hypertensive heart disease with heart failure; F31.9 Bipolar disorder, unspecified; I50.22 Chronic systolic (congestive) heart failure; E78.5 Hyperlipidemia, unspecified; I50.23 Acute on chronic systolic (congestive) heart failure; J44.0 Chronic obstructive pulmonary disease with (acute) lower respiratory infection; J44.1 Chronic obstructive pulmonary disease with (acute) exacerbation; F17.200 Nicotine dependence, unspecified, uncomplicated
CPT/HCPCS: 36415; 36600; 71046; 71250; 80053; 82805; 83605; 83880; 84484; 85025; 85027; 87040; 87081; 87804; 93005; 94002; 94618; 94640; 96374; 96375; 99285; A9270; J0456; J0696; J1650; J1940; J2920; J2930

== ENCOUNTER 2020-07-08 08:33 | Outpatient (CLI) | payer MEDICARE, MEDICAID, SELFPAY ==
[2020-07-08 08:45] VITALS: PULSE 68; O2SAT 96
[2020-07-08 08:46] VITALS: PULSE 77; O2SAT 95
--- NOTE | 2020-07-08 08:56 | HOMEO2EVAL ---
Home Oxygen Evaluation RC: Home Oxygen (O2) Evaluation Start: 07/08/20 08:51 Freq: Status: Active Protocol: RPE Activity Type Activity Date Activity User E-Sign Co-Sign Detail Recorded Client Recorded Date Recorded By Document 07/08/20 08:45 SJB [id number] 07/08/20 08:55 SJB Document 07/08/20 08:46 SJB [id number] 07/08/20 08:55 SJB 07/08/20 07/08/20 08:45 08:46 Home O2 Evaluation Test Phase Resting Exercise Oxygen Delivery Room Air Room Air Pulse Oximetry (90-100 %) 96 95 Pulse Rate (60-100 beats/min) 68 77 Activity Tolerance Excellent Excellent Rating of Perceived Dyspnea (PD) +1 Mild, Noticeable to the Participant but Not to an Observer Ambulation Distance (feet) 360 Home Oxygen Evaluation Comments Pt walked 360 ft on room air. Tolerated very well. Sp02s remained within 93-96. HR remained within 68-77. Pt talked through walk with no complaints. Treatment Charges O2 Evaluation
== END 2020-07-08 08:34 | disposition home or self-care (01) ==
PROVIDERS: PCP Internal Medicine; Visit Provider Internal Medicine
DX: J44.9 Chronic obstructive pulmonary disease, unspecified (principal)
CPT/HCPCS: 94618

== ENCOUNTER 2020-07-16 00:29 | Emergency (ER) | payer MEDICARE, MEDICAID, SELFPAY ==
[2020-07-16] VITALS (11 sets, daily range): BP systolic 148–181; BP diastolic 73–105; PULSE 64–80; RESP 18–28; TEMP 36.8–36.9; O2SAT 95–98
--- NOTE | ~2020-07-16 | XR_ITS ---
EXAMINATION: XR chest 2V EXAM DATE: 07/16/2020 01:06 INDICATION: Pneumothorax. Dyspnea. TECHNIQUE: Frontal and lateral projections of the chest obtained and reviewed. Comparison is made to prior examination from 11/08/2019. FINDINGS: There is a small to moderate-sized left-sided pneumothorax, also with small amount of pleur al fluid, consistent with hydropneumothorax. There is a right-sided Chemo-Port which is new compared to previous examination. Small amount of nonspecific right-sided midlung zone airspace disease which is new compared to previous examination. The right apical airspace disease is unchanged compared to p rior study, could be scarring. Cardiomediastinal silhouette is normal. Some chronic hyperinflation. T here are no osseous abnormalities identified. IMPRESSION: 1. Small to moderate size left-sided hydropneumothorax. 2. Small amount of right-sided airspace disease, could be pneumonia, atelectasis or less likely canc er. Considerable one-month follow-up examination. I discussed left-sided hydropneumothorax with Gio Chandler MD at 07/16/2020 1:12 CDT. Reviewed, dictated and finalized at location G. IMPRESSION: 1. Small to moderate size left-sided hydropneumothorax. 2. Small amount of right-sided airspace disease, could be pneumonia, atelectas is or less likely cancer. Considerable one-month follow-up examination. I discussed left-sided hydropneumothorax with Gio Chandler MD at 020 1:12 CDT.
--- NOTE | 2020-07-16 00:44 | ECG_ITS ---
Measurements Intervals [place] Rate: 72 P: 81 [place]: 132 QRS: -74 QRSD: 128 T: -60 QT: 386 QTc: 424 Interpretive Statements SINUS RHYTHM RSR' IN V1 OR V2, CONSIDER RIGHT VENTRICULAR HYPERTROPHY OR RIGHT VCD LEFT ANTERIOR FASCICULAR BLOCK BORDERLINE ST-T WAVE ABNORMALITY- INF/LAT LEADS BASELINE WANDER- V4-V6 ABNORMAL ECG Electronically Signed On 07-16-2020 7:06:37 CDT by Kevin Cervantes D.O.
[2020-07-16 01:00] LABS: Hematocrit 42.2 % (37.0-46.0); Hemoglobin 13.4 g/dL (12.4-15.3); Mean Corpuscular HGB Conc 31.8 g/dL (32.0-36.0); Mean Corpuscular Hemoglobin 29.1 pg (27.0-31.0); Mean Corpuscular Volume 91.5 fL (78.0-102.0); Mean Platelet Volume 9.4 fl (8.7-11.0); Platelet Count Result 301 K/mm3 (150-420); Red Blood Count 4.61 M/mm3 (4.70-6.10); Red Cell Distribution Width 14.1 % (11.6-14.4); White Blood Count 8.9 K/mm3 (4.8-10.8)
--- NOTE | 2020-07-16 01:17 | ED.SOB ---
HPI - SOB/Dyspnea General Chief Complaint: Shortness of Breath/Dyspnea Stated Complaint: HTN, Shortness of Breath Time Seen by Provider: 07/16/20 00:37 Source: patient Mode of arrival: EMS Limitations: no limitations History of Present Illness HPI Narrative: This is a 70-year-old gentleman smoker with a history of COPD and history of lung cancer receiving treatment at [facility] with pulmonology. This morning he woke up from sleep feeling short of breath with a mild cough, and was concerned and took his blood pressure and had a blood pressure reading of 180s over over 87. The patient called EMS and prior to arrival to the emergency department the patient had breathing treatment and when he presented to the emergency department he he did not feel that he was currently short of breath. There is no fever chills no chest pain or pressure currently no shortness of breath with no nausea vomiting or abdominal pain. Recent recheck of blood pressure is 140s over 80s. The patient did sign a DNR and does have an appointment with pulmonology at [facility] in the morning that he feels that he absolutely needs to keep that appointment. MD elicited complaint: shortness of breath and cough Pertinent past history: COPD Onset (ago): hour(s) Timing: improved Exacerbating factors: nothing Relieving factors: bronchodilators Related Data Home Medications Medication Instructions Recorded Confirmed acetaminophen 500 mg capsule 500 mg PO Q6H 10/17/19 04/19/20 amitriptyline 25 mg tablet 25 mg PO ONCE 10/17/19 04/19/20 aspirin 81 mg tablet,delayed 81 mg PO DAILY 10/17/19 04/19/20 release atorvastatin 10 mg tablet 10 mg PO DAILY 10/17/19 04/19/20 carvedilol 12.5 mg tablet 12.5 mg PO BID tablet 10/17/19 04/19/20 cyclobenzaprine 10 mg tablet 10 mg PO TID 10/17/19 04/19/20 diclofenac sodium 75 mg 75 mg PO BID 10/17/19 04/19/20 tablet,delayed release diphenhydramine HCl 50 mg capsule 50 mg PO Q6H 10/17/19 04/19/20 fluticasone 500 mcg-salmeterol 50 1 inhalation INHALATION Q12H 10/17/19 04/19/20 mcg/dose blistr powdr for inhalation fluticasone fur. 100 mcg-umeclid 1 inhalation INHALATION DAILY 10/17/19 04/19/20 62.5 mcg-vilant 25 mcg inhalat.powder fluticasone propionate 50 1 spray NASAL DAILY 10/17/19 04/19/20 mcg/actuation nasal spray,suspension folic acid 1 mg tablet 1 mg PO DAILY 10/17/19 04/19/20 lisinopril 20 mg tablet 20 mg PO DAILY 10/17/19 04/19/20 risperidone 2 mg tablet 2 mg PO BID 10/17/19 04/19/20 sumatriptan succinate 100 mg tablet 100 mg PO ONCE 10/17/19 04/19/20 famotidine 20 mg tablet 20 mg PO BID tablet 10/20/19 04/19/20 albuterol sulfate 90 mcg/actuation 2 inhalation INHALATION Q4H gm 04/19/20 04/19/20 aerosol inhaler topiramate 25 mg capsule,extended 25 mg PO BID cap 04/19/20 04/19/20 release 24 hr verapamil 80 mg tablet 80 mg PO BID tablet 04/19/20 04/19/20 Allergies Allergy/AdvReac Type Severity Reaction Status Date / Time Sulfa (Sulfonamide Allergy Rash Verified 07/16/20 01:03 Antibiotics) Review of Systems Review of Systems: All systems reviewed & are unremarkable except as noted in HPI and below PMFSH Past Medical History Medical History (Updated 07/16/20 @ 01:23 by Gio Chandler MD) Chronic obstructive pulmonary disease, unspecified Chronic systolic heart failure [place] (dyspnea on exertion) Dyslipidemia Essential hypertension Smoking Unspecified systolic (congestive) heart failure Social History Social History Smoking packs per day: 0.5 Smoking cigarettes per day: 10.0 Years smoked: 50 Smoking pack-years: 25.00 Smoking status: Current every day smoker Tobacco type: cigarettes Alcohol intake: former Drinks per week: 0 Substance use: never Gender identity (if verbalized by the patient): Male Spiritual care concerns: No Agree to blood products: Yes Exam Const: General: no acute distress
--- NOTE | 2020-07-16 01:20 | PC.NURSE ---
Patient returned from Xray department at 0110, taken to restroom to urinate, ambulatory with assist.
[2020-07-16] MEDS: methylPREDNISolone SOD SUCC 125 MG VIAL IV PUSH (01:24)
[2020-07-16 01:25] LABS: Alanine Aminotransferase 21 U/L (16-63); Albumin Level 2.5 g/dL (3.4-5.0); Alkaline Phosphatase 75 U/L (46-116); Anion Gap 2 mmol/L (8-16); Aspartate Amino Transferase < 10 U/L (15-37); Bilirubin,Total 0.3 mg/dL (0.00-1.00); Blood Urea Nitrogen 27 mg/dL (7-18); Calcium 8.1 mg/dL (8.5-10.1); Carbon Dioxide 32 mmol/L (21-32); Chloride 102 mmol/L (98-108); Estimated CRCL calculation 72 ml/min; Estimated Glomerular Filt Rate > 60; Glucose 83 mg/dL (70-99); Osmolality Calculated 286 mOsm/kg (285-295); Potassium 4.1 mmol/L (3.5-5.1); Sodium 136 mmol/L (136-145); Total Protein 5.4 g/dL (6.4-8.2); Troponin I 0.03 ng/mL (0.00-0.056)
[2020-07-16] MEDS: IPRATROPIUM 0.5 MG/ALBUTEROL SULFATE 2.5 MG AMPUL.NEB 3 ML INHALATION (01:25)
--- NOTE | 2020-07-16 01:35 | PC.NURSE ---
pt declined admission offered. states has pulmonology appt in the morning , he will discuss his options with him.
--- NOTE | 2020-07-16 01:39 | PC.NURSE ---
copy of chart, chest xray, sent with pt to take to heel room supervisor in the morning.
--- NOTE | 2020-07-16 01:49 | PC.NURSE ---
pt assisted to bathroom prior to discharge.
--- NOTE | 2020-07-16 01:56 | PC.NURSE ---
rich rull her to draft roller picker patient. pt assisted to car via wheelchair with powdered sugar supervisorannalisa fernández. departed with all personal belongings. alert and stable. no complaints of shortness of breath. discharge packet reviewed with rich, explained packet prepared to take to pulmonology appt in er. rich voiced understanding of instructions.
== END 2020-07-16 01:48 | disposition left against medical advice (07) ==
PROVIDERS: Emergency Provider Emergency Medicine; PCP Internal Medicine
DX: J94.2 Hemothorax (principal); J44.9 Chronic obstructive pulmonary disease, unspecified; C34.90 Malignant neoplasm of unspecified part of unspecified bronchus or lung; F17.200 Nicotine dependence, unspecified, uncomplicated; E78.5 Hyperlipidemia, unspecified; I10 Essential (primary) hypertension
CPT/HCPCS: 36415; 71046; 80053; 84484; 85027; 93005; 94640; 96374; 99284; J2930

== ENCOUNTER 2020-07-23 07:41 | Outpatient (CLI) | payer MEDICARE, OTHER, SELFPAY ==
--- NOTE | ~2020-07-23 | XR_ITS ---
XR chest 2V DATE: 07/23/2020 08:15 INDICATION: Shortness of breath. Left hydropneumothorax TECHNIQUE: 2 views COMPARISON: 07/16/2020 PA and lateral chest 06/04/2018 CT thorax FINDINGS: Bilateral hyperinflation and relative flattening of the diaphragms consistent with COPD. Patchy infiltrate in the right mid and both upper lung zones is suggested. Pulmonary mass density is not excluded in the right mid to upper lung. Mild left pneumothorax, improved since 07/16/2020. Normal heart size. Aortic calcification. Subtle pulmonary arteries are prominent, suggesting pulmonary hypertension. Right Port-A-Cath catheter tip overlies superior vena cava. Diffuse osteopenia. IMPRESSION: Mild residual left apical pneumothorax, improved since 07/16/2020 Cannot exclude right lung mass, bilateral infiltrates Reviewed, dictated and finalized at location A.
[2020-07-23 07:59] LABS: Basophils Absolute Auto 0.03 K/mm3 (0.00-0.10); Basophils Percent Auto 0.6 % (0.0-1.0); Eosinophils Absolute Auto 0.49 K/mm3 (0.02-0.50); Eosinophils Percent Auto 9.6 % (1.0-6.0); Hematocrit 41.5 % (37.0-46.0); Hemoglobin 13.2 g/dL (12.4-15.3); Immature Granulocyte Absolute 0.02 K/mm3 (0.00-0.00); Immature Granulocyte Percent A 0.4 % (0.0-0.0); Lymphocytes Absolute Auto 0.42 K/mm3 (1.10-4.50); Lymphocytes Percent Auto 8.3 % (18.0-42.0); Mean Corpuscular HGB Conc 31.8 g/dL (32.0-36.0); Mean Corpuscular Volume 91.2 fL (78.0-102.0); Mean Platelet Volume 8.9 fl (8.7-11.0); Monocytes Absolute Auto 0.55 K/mm3 (0.10-0.90); Monocytes Percent Auto 10.8 % (2.0-11.0); Neutrophils Absolute Auto 3.6 K/mm3 (1.7-7.2); Neutrophils Percent Auto 70.3 % (50.0-70.0); Platelet Count Result 211 K/mm3 (150-420); Red Blood Count 4.55 M/mm3 (4.70-6.10); Red Cell Distribution Width 13.9 % (11.6-14.4); White Blood Count 5.1 K/mm3 (4.8-10.8)
--- NOTE | 2020-07-23 08:00 | ECG_ITS ---
Measurements Intervals [place] Rate: 67 P: 66 [place]: 176 QRS: -58 QRSD: 130 T: -63 QT: 398 QTc: 423 Interpretive Statements SINUS RHYTHM LEFT AXIS DEVIATION INTRAVENTRICULAR CONDUCTION DELAY MINIMAL Q WAVES- LAT/HIGH LAT LEADS CONSIDER ANTEROSEPTAL INFARCT, AGE INDETERMINATE T WAVE ABNORMALITY IN INFERIOR LEADS- CONSIDER ISCHEMIA ABNORMAL ECG Electronically Signed On 07-23-2020 8:33:33 CDT by Kevin Cervantes D.O.
[2020-07-23 08:34] LABS: Alanine Aminotransferase 22 U/L (16-63); Albumin Level 2.9 g/dL (3.4-5.0); Alkaline Phosphatase 83 U/L (46-116); Anion Gap 6 mmol/L (8-16); Aspartate Amino Transferase 10 U/L (15-37); Bilirubin,Total 0.2 mg/dL (0.00-1.00); Blood Urea Nitrogen 22 mg/dL (7-18); Calcium 8.5 mg/dL (8.5-10.1); Carbon Dioxide 32 mmol/L (21-32); Chloride 96 mmol/L (98-108); Cholesterol 152 mg/dL (0-200); Estimated Glomerular Filt Rate > 60; Glucose 98 mg/dL (70-99); HDL Direct 58 mg/dL (40-60); LDL Cholesterol Calculated 76 mg/dL (<130); Osmolality Calculated 281 mOsm/kg (285-295); Potassium 4.6 mmol/L (3.5-5.1); Sodium 134 mmol/L (136-145); Total Protein 5.7 g/dL (6.4-8.2); Triglycerides 91 mg/dL (0-150)
== END 2020-07-23 07:42 | disposition home or self-care (01) ==
LOC: CHSLAB 07:45
PROVIDERS: Internal Medicine Cardiovascular Disease; PCP Internal Medicine
DX: E78.5 Hyperlipidemia, unspecified (principal); R06.02 Shortness of breath
CPT/HCPCS: 36415; 71046; 80053; 80061; 85025; 93005

== ENCOUNTER 2020-07-28 13:20 | Outpatient (CLI) | payer MEDICARE, MEDICAID, SELFPAY ==
--- NOTE | ~2020-07-28 | XR_ITS ---
EXAMINATION: XR chest 2V DATE: 07/28/2020 13:38 INDICATION: Shortness of breath, cough and fever TECHNIQUE: PA and lateral views of the chest are obtained. COMPARISON: 07/23/2020, 07/16/2020 FINDINGS: There are increasing airspace opacities in the right upper lobe. Small pleural effusions ar e present. There is no pneumothorax. A right internal jugular Port-A-Cath ends with its tip in the di stal superior vena cava. The cardiomediastinal silhouette is normal. There is moderate thoracic spond ylosis. IMPRESSION: 1. Developing airspace opacities of the right upper lobe, consistent with atelectasis versus pneumoni a. 2. Small pleural effusions. Reviewed, dictated and finalized at location A. POSTING CLERK IMPRESSION: 1. Developing airspace opacities of the right upper lobe, consistent with atele ctasis versus pneumonia. 2. Small pleural effusions.
== END 2020-07-28 13:21 | disposition home or self-care (01) ==
PROVIDERS: PCP Internal Medicine
DX: R06.02 Shortness of breath (principal)
CPT/HCPCS: 71046

== ENCOUNTER 2020-07-29 03:34 | Emergency (ER) | payer MEDICARE, MEDICAID, SELFPAY ==
--- NOTE | ~2020-07-29 | XR_ITS ---
EXAMINATION: XR chest 1V portable INDICATION: Shortness of breath TECHNIQUE: Portable AP chest at 0358 hours COMPARISON: 07/28/2020 FINDINGS: Previously described airspace opacities in the right upper lobe persistent but have improve d. There are tiny pleural effusions. No pneumothorax is identified. A right internal jugular Port-A-C ath ends with its tip in the distal superior vena cava. The cardiomediastinal silhouette is stable. IMPRESSION: 1. Persistent but improved opacities of the right upper lobe, consistent with atelectasis versus pneu monia. Reviewed, dictated and finalized at location A. KFAST SUPERVISOR IMPRESSION: 1. Persistent but improved opacities of the right upper lobe, consistent with a telectasis versus pneumonia.
[2020-07-29 03:35] VITALS: BP 171/84; PULSE 61; RESP 20; TEMP 36.8; O2SAT 98
--- NOTE | 2020-07-29 03:40 | ECG_ITS ---
Measurements Intervals [place] Rate: 58 P: 50 [place]: 155 QRS: -69 QRSD: 133 T: -55 QT: 423 QTc: 418 Interpretive Statements SINUS BRADYCARDIA INTRAVENTRICULAR CONDUCTION DELAY T WAVE ABNORMALITY IN INFERIOR LEADS- CONSIDER ISCHEMIA BASELINE ARTIFACT- V1-V5 ABNORMAL ECG Electronically Signed On 07-29-2020 7:14:19 PAYROLL BOOKKEEPER by Kevin Cervantes D.O.
[2020-07-29 03:50] VITALS: PULSE 58
--- NOTE | 2020-07-29 03:55 | ED.SOB ---
HPI - SOB/Dyspnea General Chief Complaint: Shortness of Breath/Dyspnea Stated Complaint: Shortness of Breath Time Seen by Provider: 07/29/20 03:56 Source: patient Mode of arrival: EMS Limitations: no limitations History of Present Illness HPI Narrative: 70-year-old man with a history of COPD, congestive heart failure, and lung cancer brought to the emergency department by EMS after he woke up approximately 4 hours prior to presentation with shortness of breath. Patient states that started suddenly. States that he has had no sputum production, fever, chest pain, back pain, abdominal pain, nausea, vomiting or sweating. He states he is currently taking antibiotics. He was seen on 07/16 with a hydropneumothorax that resolved without percutaneous treatment. He continues to smoke. He denies any sick contacts or contacts with anybody who has COVID-19. MD elicited complaint: shortness of breath Pertinent past history: COPD and congestive heart failure Onset (ago): hour(s) Severity: moderate Exacerbating factors: lying flat and exertion Relieving factors: nothing Known history of: COPD and congestive heart failure Associated symptoms: wheezing Related Data Home oxygen amount: none Home Medications Medication Instructions Recorded Confirmed acetaminophen 500 mg capsule 500 mg PO Q6H 10/17/19 07/29/20 amitriptyline 25 mg tablet 25 mg PO ONCE 10/17/19 07/29/20 aspirin 81 mg tablet,delayed 81 mg PO DAILY 10/17/19 07/29/20 release atorvastatin 10 mg tablet 10 mg PO DAILY 10/17/19 07/29/20 carvedilol 12.5 mg tablet 12.5 mg PO BID tablet 10/17/19 07/29/20 cyclobenzaprine 10 mg tablet 10 mg PO TID PRN 10/17/19 07/29/20 diclofenac sodium 75 mg 75 mg PO BID 10/17/19 07/29/20 tablet,delayed release diphenhydramine HCl 50 mg capsule 50 mg PO Q6H PRN 10/17/19 07/29/20 fluticasone propionate 50 1 spray NASAL DAILY 10/17/19 07/29/20 mcg/actuation nasal spray,suspension folic acid 1 mg tablet 1 mg PO DAILY 10/17/19 07/29/20 lisinopril 20 mg tablet 20 mg PO DAILY 10/17/19 07/29/20 risperidone 2 mg tablet 2 mg PO BID 10/17/19 07/29/20 sumatriptan succinate 100 mg tablet 100 mg PO ONCE 10/17/19 07/29/20 famotidine 20 mg tablet 20 mg PO BID tablet 10/20/19 07/29/20 albuterol sulfate 90 mcg/actuation 2 inhalation INHALATION Q4H gm 04/19/20 07/29/20 aerosol inhaler topiramate 25 mg capsule,extended 25 mg PO BID cap 04/19/20 07/29/20 release 24 hr verapamil 80 mg tablet 80 mg PO BID tablet 04/19/20 07/29/20 albuterol sulfate [ProAir HFA] 2 puff INHALATION QID 07/29/20 07/29/20 azithromycin 250 mg PO DAILY 07/29/20 07/29/20 ferrous sulfate 325 mg PO DAILY 07/29/20 07/29/20 [id number]-[id number] 1 inh INHALATION DAILY 07/29/20 07/29/20 [Trelegy Ellipta] loperamide 2 mg PO PRN PRN 07/29/20 07/29/20 ondansetron HCl 8 mg PO DAILY PRN 07/29/20 07/29/20 prochlorperazine maleate 10 mg PO Q6-8H PRN 07/29/20 07/29/20 Allergies Allergy/AdvReac Type Severity Reaction Status Date / Time Sulfa (Sulfonamide Allergy Rash Verified 07/16/20 01:03 Antibiotics) Review of Systems Constitutional: Constitutional: Denies chills, Denies fever(s) and Denies weakness Eyes: Eyes: Denies change in vision and Denies photophobia ENT: Denies dysphagia, Denies nasal congestion and Denies sore throat Cardiovascular: Cardiovascular: Denies chest pain and Denies radiating jaw, neck or arm pain Respiratory: Respiratory: Denies chest congestion, Reports cough, Reports dyspnea and Reports wheezing Gastrointestinal: Gastrointestinal: Denies abdominal pain, Denies diarrhea, Denies nausea and Denies vomiting Genitourinary: Genitourinary: Denies dysuria and Denies urinary frequency Musculoskeletal: Musculoskeletal: Denies arthralgias and Denies joint swelling Integumentary/Breasts: Skin/Breast: Denies pruritus, Denies erythema and Denies rash Neurologic: Denies vertigo, Denies dizziness, Denies syncope and Denies focal weakness Hematologic/Ly
[2020-07-29 04:02] LABS: Hematocrit 40.3 % (37.0-46.0); Hemoglobin 12.9 g/dL (12.4-15.3); Mean Corpuscular Hemoglobin 29.3 pg (27.0-31.0); Mean Corpuscular Volume 91.6 fL (78.0-102.0); Mean Platelet Volume 8.7 fl (8.7-11.0); Platelet Count Result 285 K/mm3 (150-420); White Blood Count 2.8 K/mm3 (4.8-10.8)
[2020-07-29 04:22] LABS: Alanine Aminotransferase 38 U/L (16-63); Albumin Level 2.7 g/dL (3.4-5.0); Alkaline Phosphatase 80 U/L (46-116); Anion Gap 4 mmol/L (8-16); Aspartate Amino Transferase 14 U/L (15-37); Bilirubin,Total 0.4 mg/dL (0.00-1.00); Blood Urea Nitrogen 20 mg/dL (7-18); Calcium 8.3 mg/dL (8.5-10.1); Carbon Dioxide 33 mmol/L (21-32); Chloride 95 mmol/L (98-108); Estimated CRCL calculation 83 ml/min; Estimated Glomerular Filt Rate > 60; Glucose 97 mg/dL (70-99); Osmolality Calculated 276 mOsm/kg (285-295); Potassium 4.2 mmol/L (3.5-5.1); Sodium 132 mmol/L (136-145); Total Protein 5.7 g/dL (6.4-8.2)
[2020-07-29 04:34] LABS: Partial Thromboplastin Time 26.8 SEC (22.3-31.6)
[2020-07-29 04:36] LABS: BNP 213 pg/mL (0-100)
--- NOTE | 2020-07-29 04:42 | PC.NURSE ---
Patient given ham sandwich, coffee, fruit cup, cottage cheese, bag of chips, and diet elsa mist, patient is sitting up in the bed eating and watching tv.
[2020-07-29 04:43] LABS: Lactic Acid Reflex 1.2 mmol/L (0.4-2.0)
[2020-07-29 04:44] LABS: Band Neutrophils Percent 1 % (0-6); Lymphocytes Absolute Manual 0.22 K/mm3 (1.1-4.5); Lymphocytes Percent Manual 8 % (18-44); Monocytes Absolute Manual 0.36 K/mm3 (0.1-0.90); Monocytes Percent Manual 13 % (3-9); Neutrophils Absolute Manual 2.21 K/mm3 (1.3-6.7); Neutrophils Percent Manual 78 % (46-73)
[2020-07-29 04:45] LABS: Platelet Estimate Adequate (Adequate)
[2020-07-29 04:46] LABS: Troponin I < 0.02 ng/mL (0.00-0.056)
[2020-07-29] MEDS: DEXAMETHASONE SOD PHOS INJ 4 MG/ML VIAL 8 MG IV PUSH (04:54)
[2020-07-29] MEDS: ALBUTEROL SULFATE (*SP) INHALER 4 PUFF INHALATION (04:55)
--- NOTE | 2020-07-29 04:59 | PC.NURSE ---
food tray given to pt upon request.
[2020-07-29 05:06] LABS: Add Urine Microscopic? NO; Appearance Urine Clear (Clear); Bilirubin Urine Negative (Negative); Blood Urine Negative (Negative); Color Urine Yellow (Yellow); Glucose Urine UA Negative (Negative); Ketones Urine Negative (Negative); Leukocyte Esterase Ur Negative LEU/UL (Negative); Nitrate Urine Negative (Negative); Protein Urine Negative (Negative); Urobilinogen Urine 0.2 mg/dL (0.2-1.0)
[2020-07-29 05:19] LABS: Base Excess ABG 5.5 mmol/L (0-2); Carboxyhemoglobin 17.7 % (0-1.5); HCO3 ABG 33.7 mmol/L (23-29); Methemoglobin ABG 0.3 % (0-1.5); Oxygen Content ABG 15.5 %vol (16.0-22.0); Oxygen Saturation ABG 95.4 % (95-97); Oxyhemoglobin 78.2 % (94-100); PCO2 ABG 65.8 mmHg (35-45); PO2 ABG 64.2 mmHg (75-85); Reduced Hemoglobin 3.8 % (0-1.5); Total Hemoglobin 14.1 g/dL; pH ABG 7.33 (7.35-7.45)
[2020-07-29 05:21] LABS: Device ROOM AIR; Site Drawn LEFT BRACHIAL
--- NOTE | 2020-07-29 05:31 | PC.NURSE ---
pt states breathing is improved, head of bed lowered to level of comfort, lights out , tv on. resting with eyes closed.
[2020-07-29 05:53] VITALS: BP 166/80; PULSE 108; RESP 20; TEMP 36.3; O2SAT 97
--- NOTE | 2020-07-29 05:56 | PC.NURSE ---
pt assisted with dressing, up to wheelchair, mask on pt.
--- NOTE | 2020-07-29 06:12 | PC.NURSE ---
rich robertson here, notified of pt return to facility and covid test pending. explained to call tomorrow after 4pm for results. pt has appts tomorrow , explained to call md office and follow their recommendations. pt assisted to vehicle per wheelchair.
[2020-07-30 15:21] LABS: SARS-CoV-2 RNA PCR Negative
== END 2020-07-29 06:20 | disposition home or self-care (01) ==
PROVIDERS: Emergency Provider Emergency Medicine; PCP Internal Medicine
DX: I50.22 Chronic systolic (congestive) heart failure (principal); E78.5 Hyperlipidemia, unspecified; I11.0 Hypertensive heart disease with heart failure; F17.200 Nicotine dependence, unspecified, uncomplicated; Z20.828 Contact with and (suspected) exposure to other viral communicable diseases
CPT/HCPCS: 36415; 36600; 71045; 80053; 81003; 82375; 82805; 83050; 83605; 83880; 84484; 85025; 85380; 85610; 85730; 87040; 87635; 93005; 96374; 99284; A9270; C9803; J1100; U0003

== ENCOUNTER 2020-07-30 20:42 | Emergency (ER) | payer MEDICARE, MEDICAID, SELFPAY ==
--- NOTE | ~2020-07-30 | XR_ITS ---
EXAMINATION: XR chest 2V DATE: 07/30/2020 21:20 INDICATION: Shortness of breath and cough. TECHNIQUE: Frontal and lateral views of the chest were obtained. COMPARISON: Chest CT 11/07/2019, chest single view 07/29/2020 FINDINGS: The lungs are hyperexpanded with architectural distortion, consistent with emphysema. Again seen are scattered nodules in the lungs, worst in right upper lobe. No pleural effusion or pneumotho rax. The heart size is normal. Calcified right hilar and mediastinal lymph nodes are consistent with old granulomatous disease. There is a right internal jugular port with tip in superior vena cava. The re is a benign bone island in left 11th rib. IMPRESSION: 1. Severe emphysema. 2. Stable scattered nodules in the lungs, likely chronic infection. Reviewed, dictated and finalized at location A. APPLIANCE TECH
[2020-07-30 20:45] VITALS: BP 174/95; PULSE 70; RESP 16; TEMP 37; O2SAT 97
--- NOTE | 2020-07-30 20:53 | ECG_ITS ---
Measurements Intervals [place] Rate: 63 P: 81 [place]: 155 QRS: -74 QRSD: 129 T: -47 QT: 396 QTc: 406 Interpretive Statements SINUS RHYTHM VENTRICULAR PREMATURE COMPLEX LEFT ANTERIOR FASCICULAR BLOCK ST-T WAVE ABNORMALITY IN INFERIOR LEADS- CONSIDER ISCHEMIA BASELINE WANDER- V4-V6 ABNORMAL ECG Electronically Signed On 07-31-2020 7:07:07 MACHINE PECAN PICKER by Kevin Cervantes D.O.
[2020-07-30] MEDS: IPRATROPIUM 0.5 MG/ALBUTEROL SULFATE 2.5 MG AMPUL.NEB 3 ML INHALATION (20:56)
[2020-07-30 20:57] VITALS: PULSE 71; RESP 18; O2SAT 96
[2020-07-30] MEDS: FUROSEMIDE INJ 40 MG/4 ML VIAL IV PUSH (21:02)
[2020-07-30] MEDS: methylPREDNISolone SOD SUCC 125 MG VIAL IV PUSH (21:02)
[2020-07-30 21:04] VITALS: PULSE 70; RESP 18; O2SAT 100
[2020-07-30 21:08] LABS: Hemoglobin 13.4 g/dL (12.4-15.3); Mean Corpuscular HGB Conc 31.9 g/dL (32.0-36.0); Mean Corpuscular Hemoglobin 29.2 pg (27.0-31.0); Mean Corpuscular Volume 91.5 fL (78.0-102.0); Mean Platelet Volume 8.8 fl (8.7-11.0); Platelet Count Result 288 K/mm3 (150-420); Red Blood Count 4.59 M/mm3 (4.70-6.10); White Blood Count 2.4 K/mm3 (4.8-10.8)
[2020-07-30] MEDS: ASPIRIN 81 MG CHEWABLE TABLET 324 MG PO (21:14)
[2020-07-30 21:24] LABS: D Dimer 0.44 mg/L (0.19-0.50); Partial Thromboplastin Time 27.2 SEC (22.3-31.6); Prothrombin Time 10.4 Seconds (9.64-11.0)
[2020-07-30 21:25] LABS: Alanine Aminotransferase 37 U/L (16-63); Albumin Level 2.9 g/dL (3.4-5.0); Alkaline Phosphatase 82 U/L (46-116); Anion Gap 2 mmol/L (8-16); Aspartate Amino Transferase 13 U/L (15-37); BNP 308 pg/mL (0-100); Bilirubin,Total 0.3 mg/dL (0.00-1.00); Blood Urea Nitrogen 27 mg/dL (7-18); Calcium 8.1 mg/dL (8.5-10.1); Carbon Dioxide 34 mmol/L (21-32); Chloride 97 mmol/L (98-108); Estimated Glomerular Filt Rate > 60; Glucose 94 mg/dL (70-99); Osmolality Calculated 281 mOsm/kg (285-295); Potassium 4.3 mmol/L (3.5-5.1); Sodium 133 mmol/L (136-145); Total Protein 5.9 g/dL (6.4-8.2); Troponin I 0.02 ng/mL (0.00-0.056)
[2020-07-30] MEDS: levoFLOXacin 500 MG/D5W 100 ML 500 MG/100 ML BAG 100 MG IVPB (21:30)
[2020-07-30 21:31] LABS: Band Neutrophils Percent 0 % (0-6); Basophils Percent Manual 0 % (0-1); Eosinophils Absolute Manual 0.07 K/mm3 (0.02-0.5); Eosinophils Percent Manual 3 % (1-6); Lymphocytes Percent Manual 25 % (18-44); Monocytes Absolute Manual 0.45 K/mm3 (0.1-0.90); Monocytes Percent Manual 19 % (3-9); Myelocytes Percent 1 %; Neutrophils Absolute Manual 1.24 K/mm3 (1.3-6.7); Neutrophils Percent Manual 52 % (46-73); Platelet Estimate Adequate (Adequate); Total Cells Counted 100
[2020-07-30 21:39] VITALS: BP 173/90; PULSE 77; O2SAT 97
--- NOTE | 2020-07-30 22:01 | ED.SOB ---
HPI - SOB/Dyspnea General Chief Complaint: Upper Respiratory Infection Stated Complaint: 70YO male w/ known h.o copd now down to 1PPD after many years of smoking 2-3 PPD here c/o SOB associated with Left chest pain for 30 minutes. Patient w/ Known h.o CAD refuses to quit smoking. His last visit to our ER was 2 days ago. Here again for eval. Related Data Home Medications Medication Instructions Recorded Confirmed acetaminophen 500 mg capsule 500 mg PO Q6H 10/17/19 07/30/20 amitriptyline 25 mg tablet 25 mg PO ONCE 10/17/19 07/30/20 aspirin 81 mg tablet,delayed 81 mg PO DAILY 10/17/19 07/30/20 release atorvastatin 10 mg tablet 10 mg PO DAILY 10/17/19 07/30/20 carvedilol 12.5 mg tablet 12.5 mg PO BID tablet 10/17/19 07/30/20 cyclobenzaprine 10 mg tablet 10 mg PO TID PRN 10/17/19 07/30/20 diclofenac sodium 75 mg 75 mg PO BID 10/17/19 07/30/20 tablet,delayed release diphenhydramine HCl 50 mg capsule 50 mg PO Q6H PRN 10/17/19 07/30/20 fluticasone propionate 50 1 spray NASAL DAILY 10/17/19 07/30/20 mcg/actuation nasal spray,suspension folic acid 1 mg tablet 1 mg PO DAILY 10/17/19 07/30/20 lisinopril 20 mg tablet 20 mg PO DAILY 10/17/19 07/30/20 risperidone 2 mg tablet 2 mg PO BID 10/17/19 07/30/20 sumatriptan succinate 100 mg tablet 100 mg PO ONCE 10/17/19 07/30/20 famotidine 20 mg tablet 20 mg PO BID tablet 10/20/19 07/30/20 albuterol sulfate 90 mcg/actuation 2 inhalation INHALATION Q4H gm 04/19/20 07/30/20 aerosol inhaler topiramate 25 mg capsule,extended 25 mg PO BID cap 04/19/20 07/30/20 release 24 hr verapamil 80 mg tablet 80 mg PO BID tablet 04/19/20 07/30/20 albuterol sulfate [ProAir HFA] 2 puff INHALATION QID 07/29/20 07/30/20 azithromycin 250 mg PO DAILY 07/29/20 07/30/20 ferrous sulfate 325 mg PO DAILY 07/29/20 07/30/20 doegpfsgyjg-ihnsepqsz-pqnlcjrm 1 inh INHALATION DAILY 07/29/20 07/30/20 [Trelegy Ellipta] loperamide 2 mg PO PRN PRN 07/29/20 07/30/20 ondansetron HCl 8 mg PO DAILY PRN 07/29/20 07/30/20 prochlorperazine maleate 10 mg PO Q6-8H PRN 07/29/20 07/30/20 Allergies Allergy/AdvReac Type Severity Reaction Status Date / Time Sulfa (Sulfonamide Allergy Rash Verified 07/16/20 01:03 Antibiotics) Review of Systems Constitutional: Constitutional: Reports no additional constitutional complaints Eyes: Eyes: Reports no additional eye complaints ENT: Reports system reviewed and no additional complaints, except as documented Cardiovascular: Cardiovascular: Reports chest pain Respiratory: Respiratory: Reports dyspnea and Reports wheezing Gastrointestinal: Gastrointestinal: Reports no additional gastrointestinal complaints Genitourinary: Genitourinary: Reports no additional male genitourinary complaints Musculoskeletal: Musculoskeletal: Reports no additional musculoskeletal complaints Integumentary/Breasts: Skin/Breast: Reports system reviewed and no additional complaints, except as docu Neurologic: Reports system reviewed and no additional complaints, except as documented Psychiatric: Psychiatric: Reports no additional psychiatric complaints Endocrine: Endocrine: Reports no additional endocrine complaints Hematologic/Lymphatic: Hematologic/Lymphatic: Reports no additional hematologic/lymphatic complaints [facility] Past Medical History Medical History (Updated 07/30/20 @ 22:38 by Freddy Alvarez MD) Chronic obstructive pulmonary disease, unspecified Chronic systolic heart failure [place] (dyspnea on exertion) Dyslipidemia Essential hypertension Smoking Unspecified systolic (congestive) heart failure Social History Social History Smoking packs per day: 0.5 Smoking cigarettes per day: 10.0 Years smoked: 50 Smoking pack-years: 25.00 Smoking status: Current every day smoker Tobacco type: cigarettes Alcohol intake: former Drinks per week: 0 Substance use: never Gender identity (if verbalized by the patient
--- NOTE | 2020-07-30 22:23 | PC.NURSE ---
PT SIGNS AMA FORM FOR ADMISSION - STATES THAT HE CAN'T SMOKE HERE AND WANTS TO LEAVE - EDDIE ABEBE CALLED FOR A RIDE
[2020-07-30 22:33] VITALS: O2SAT 97
== END 2020-07-30 22:36 | disposition left against medical advice (07) ==
PROVIDERS: Emergency Provider Family Medicine; PCP Internal Medicine
DX: J44.1 Chronic obstructive pulmonary disease with (acute) exacerbation (principal); F17.200 Nicotine dependence, unspecified, uncomplicated; Z91.19 Patient's noncompliance with other medical treatment and regimen; I50.9 Heart failure, unspecified; J18.9 Pneumonia, unspecified organism; E78.5 Hyperlipidemia, unspecified; I11.0 Hypertensive heart disease with heart failure
CPT/HCPCS: 36415; 71046; 80053; 83880; 84484; 85025; 85380; 85610; 85730; 93005; 94640; 96365; 96375; 99283; 99284; A9270; J1940; J1956; J2930

== ENCOUNTER 2020-08-12 10:08 | Outpatient (CLI) | payer MEDICARE, MEDICAID, SELFPAY ==
[2020-08-12 10:21] LABS: Basophils Absolute Auto 0.02 K/mm3 (0.00-0.10); Basophils Percent Auto 0.4 % (0.0-1.0); Eosinophils Absolute Auto 0.03 K/mm3 (0.02-0.50); Eosinophils Percent Auto 0.6 % (1.0-6.0); Hematocrit 40.9 % (37.0-46.0); Hemoglobin 13.3 g/dL (12.4-15.3); Immature Granulocyte Absolute 0.02 K/mm3 (0.00-0.00); Immature Granulocyte Percent A 0.4 % (0.0-0.0); Lymphocytes Absolute Auto 0.49 K/mm3 (1.10-4.50); Lymphocytes Percent Auto 9.2 % (18.0-42.0); Mean Corpuscular HGB Conc 32.5 g/dL (32.0-36.0); Mean Corpuscular Hemoglobin 29.5 pg (27.0-31.0); Mean Corpuscular Volume 90.7 fL (78.0-102.0); Mean Platelet Volume 8.7 fl (8.7-11.0); Monocytes Absolute Auto 0.59 K/mm3 (0.10-0.90); Monocytes Percent Auto 11.1 % (2.0-11.0); Neutrophils Absolute Auto 4.2 K/mm3 (1.7-7.2); Neutrophils Percent Auto 78.3 % (50.0-70.0); Platelet Count Result 279 K/mm3 (150-420); Red Blood Count 4.51 M/mm3 (4.70-6.10); Red Cell Distribution Width 14.9 % (11.6-14.4); White Blood Count 5.3 K/mm3 (4.8-10.8)
--- NOTE | 2020-08-12 10:35 | ECG_ITS ---
Measurements Intervals [place] Rate: 92 P: 80 ME: 153 QRS: 268 QRSD: 121 T: -20 QT: 337 QTc: 419 Interpretive Statements SINUS RHYTHM RIGHT AXIS DEVIATION BORDERLINE R WAVE PROGRESSION, ANTERIOR LEADS ST-T WAVE ABNORMALITY IN INFERIOR LEADS- CONSIDER ISCHEMIA ABNORMAL ECG Electronically Signed On 08-12-2020 11:01:45 LICENSED OPTICIAN by Kevin Cervantes D.O.
[2020-08-12 11:07] LABS: Alanine Aminotransferase 37 U/L (16-63); Albumin Level 3.1 g/dL (3.4-5.0); Alkaline Phosphatase 80 U/L (46-116); Anion Gap 6 mmol/L (8-16); Aspartate Amino Transferase 13 U/L (15-37); Bilirubin,Total 1.1 mg/dL (0.00-1.00); Blood Urea Nitrogen 18 mg/dL (7-18); Calcium 9.1 mg/dL (8.5-10.1); Carbon Dioxide 34 mmol/L (21-32); Chloride 95 mmol/L (98-108); Estimated Glomerular Filt Rate > 60; Glucose 104 mg/dL (70-99); Osmolality Calculated 281 mOsm/kg (285-295); Potassium 4.5 mmol/L (3.5-5.1); Sodium 135 mmol/L (136-145); Total Protein 6.1 g/dL (6.4-8.2)
== END 2020-08-12 10:09 | disposition home or self-care (01) ==
PROVIDERS: PCP Internal Medicine
DX: J44.9 Chronic obstructive pulmonary disease, unspecified (principal)
CPT/HCPCS: 36415; 80053; 85025; 93005

== ENCOUNTER 2020-10-11 12:51 | Emergency (ER) | payer MEDICARE, SELFPAY ==
--- NOTE | ~2020-10-11 | XR_ITS ---
EXAMINATION: XR chest 2V DATE: 10/11/2020 13:35 INDICATION: Dyspnea. TECHNIQUE: Frontal and lateral views of the chest were obtained. COMPARISON: Chest 2 views 07/30/2020, chest CT 11/07/2019 FINDINGS: There are lucencies in the lungs, consistent with emphysema. There are patchy airspace opac ities in the upper lobes, right worse than left. No pleural effusion or pneumothorax. The heart size is normal. There is a right internal jugular port with tip in superior vena cava. Calcified mediastin al lymph nodes are consistent with old granulomatous disease. IMPRESSION: 1. Worsened patchy airspace opacities in the upper lobes, consistent with pneumonia. 2. Emphysema. Reviewed, dictated and finalized at location B. ANALYST IMPRESSION: 1. Worsened patchy airspace opacities in the upper lobes, consistent with pneum onia. 2. Emphysema.
[2020-10-11 12:55] VITALS: BP 160/78; PULSE 87; RESP 20; TEMP 36.6; O2SAT 100
--- NOTE | 2020-10-11 13:03 | ED.SOB ---
HPI - SOB/Dyspnea General Chief Complaint: Upper Respiratory Infection Stated Complaint: ambulance Time Seen by Provider: 10/11/20 13:04 Source: patient Mode of arrival: EMS Limitations: no limitations History of Present Illness HPI Narrative: 70-year-old man with a history of COPD, colon cancer with lung metastases, systolic heart failure, and smoking brought to the emergency department by EMS after he was reported to have abdominal pain and then reported to have shortness of breath. Here the patient states that he has been short of breath for several days and has been getting worse over the last week. He states that his inhalers help somewhat. He also states that he has been having some mild intermittent nose bleeding (blood on his tissue when he wipes his nose). he denies sputum production, chest pain, abdominal pain, nausea, vomiting, diarrhea, dysuria, lightheadedness, syncope and fever. MD elicited complaint: shortness of breath and cough Pertinent past history: COPD and congestive heart failure Onset (ago): week(s) (1) Context: recent illness ( Diagnosed with COVID on 09/22/20) Timing: constant Severity: moderate Exacerbating factors: exertion Relieving factors: bronchodilators Known history of: COPD and congestive heart failure Associated symptoms: cough and wheezing Treatment prior to arrival: none Related Data Home oxygen amount: none Home Medications Medication Instructions Recorded Confirmed acetaminophen 500 mg capsule 500 mg PO Q6H 10/17/19 10/11/20 aspirin 81 mg tablet,delayed 81 mg PO DAILY 10/17/19 10/11/20 release atorvastatin 10 mg tablet 10 mg PO DAILY 10/17/19 10/11/20 carvedilol 12.5 mg tablet 12.5 mg PO BID tablet 10/17/19 10/11/20 cyclobenzaprine 10 mg tablet 10 mg PO TID PRN 10/17/19 10/11/20 diclofenac sodium 75 mg 75 mg PO BID 10/17/19 10/11/20 tablet,delayed release diphenhydramine HCl 50 mg capsule 50 mg PO Q6H PRN 10/17/19 10/11/20 fluticasone propionate 50 1 spray NASAL DAILY 10/17/19 10/11/20 mcg/actuation nasal spray,suspension folic acid 1 mg tablet 1 mg PO DAILY 10/17/19 10/11/20 lisinopril 20 mg tablet 20 mg PO DAILY 10/17/19 10/11/20 risperidone 2 mg tablet 2 mg PO BID 10/17/19 10/11/20 sumatriptan succinate 100 mg tablet 100 mg PO ONCE 10/17/19 10/11/20 famotidine 20 mg tablet 20 mg PO BID tablet 10/20/19 10/11/20 topiramate 25 mg capsule,extended 25 mg PO BID cap 04/19/20 10/11/20 release 24 hr verapamil 80 mg tablet 80 mg PO BID tablet 04/19/20 10/11/20 albuterol sulfate [ProAir HFA] 2 puff INHALATION QID 07/29/20 10/11/20 azithromycin 250 mg PO DAILY 07/29/20 10/11/20 ferrous sulfate 325 mg PO DAILY 07/29/20 10/11/20 dyzhtaljsqz-grworgiwn-tothelit 1 inh INHALATION DAILY 07/29/20 10/11/20 [Trelegy Ellipta] loperamide 2 mg PO PRN PRN 07/29/20 10/11/20 ondansetron HCl 8 mg PO DAILY PRN 07/29/20 10/11/20 prochlorperazine maleate 10 mg PO Q6-8H PRN 07/29/20 10/11/20 benzonatate 100 mg PO TID PRN 10/11/20 10/11/20 ethambutol 400 mg PO DAILY 10/11/20 10/11/20 rifampin 300 mg PO BID 10/11/20 10/11/20 Allergies Allergy/AdvReac Type Severity Reaction Status Date / Time Sulfa (Sulfonamide Allergy Rash Verified 07/16/20 01:03 Antibiotics) Review of Systems Constitutional: Constitutional: Denies chills, Denies fever(s) and Denies weakness Eyes: Eyes: Denies change in vision and Denies photophobia ENT: Denies dysphagia, Reports epistaxis, Denies nasal congestion and Denies sore throat Cardiovascular: Cardiovascular: Denies chest pain and Denies radiating jaw, neck or arm pain Respiratory: Respiratory: Reports cough, Reports dyspnea and Reports wheezing Gastrointestinal: Gastrointestinal: Denies abdominal pain, Denies diarrhea, Denies nausea and Denies vomiting Genitourinary: Genitourinary: Denies hematuria and Denies dysuria Musculoskeletal: Musculoskeletal: Denies back pain, Denies arthralgias and Denies joint swelling Integumentary/Breasts: Skin/Breast: D
--- NOTE | 2020-10-11 13:04 | ECG_ITS ---
Measurements Intervals [place] Rate: 82 P: 78 PA: 165 QRS: -80 QRSD: 138 T: 50 QT: 377 QTc: 443 Interpretive Statements SINUS RHYTHM INTRAVENTRICULAR CONDUCTION DELAY CONSIDER ANTEROSEPTAL INFARCT, AGE INDETERMINATE BASELINE WANDER- V1, V3-V4 ABNORMAL ECG Electronically Signed On 10-11-2020 14:04:54 SECURITY COORDINATOR by Kevin Cervantes D.O.
[2020-10-11] MEDS: methylPREDNISolone SOD SUCC 125 MG VIAL IV PUSH (13:15)
[2020-10-11 13:29] LABS: Base Excess ABG 2.3 mmol/L (0-2); Device ROOM AIR; HCO3 ABG 27.9 mmol/L (23-29); Modified Allen's Test Pass; Oxygen Content ABG 15.3 %vol (16.0-22.0); Oxygen Saturation ABG 92.9 % (95-97); Oxyhemoglobin 89.9 % (94-100); PCO2 ABG 47.4 mmHg (35-45); PO2 ABG 68.1 mmHg (75-85); Site Drawn LEFT RADIAL; Total Hemoglobin 12.1 g/dL; pH ABG 7.39 (7.35-7.45)
[2020-10-11 13:34] LABS: Hematocrit 36.2 % (37.0-46.0); Mean Corpuscular HGB Conc 33.1 g/dL (32.0-36.0); Mean Corpuscular Hemoglobin 30.3 pg (27.0-31.0); Mean Corpuscular Volume 91.4 fL (78.0-102.0); Mean Platelet Volume 9.6 fl (8.7-11.0); Platelet Count Result 387 K/mm3 (150-420); Red Blood Count 3.96 M/mm3 (4.70-6.10); Red Cell Distribution Width 16.6 % (11.6-14.4); White Blood Count 3.7 K/mm3 (4.8-10.8)
[2020-10-11] MEDS: ALBUTEROL SULFATE NEB 2.5 MG/3 ML INH 5 MG INHALATION (13:42)
[2020-10-11 13:43] VITALS: PULSE 73; RESP 20; O2SAT 98
[2020-10-11 13:48] LABS: BNP 102 pg/mL (0-100)
[2020-10-11 13:51] VITALS: PULSE 76; RESP 20; O2SAT 99
[2020-10-11 13:51] LABS: Alanine Aminotransferase 34 U/L (16-63); Albumin Level 3.5 g/dL (3.4-5.0); Alkaline Phosphatase 113 U/L (46-116); Anion Gap 5 mmol/L (8-16); Aspartate Amino Transferase 20 U/L (15-37); Bilirubin,Total 0.4 mg/dL (0.00-1.00); Blood Urea Nitrogen 21 mg/dL (7-18); Carbon Dioxide 30 mmol/L (21-32); Chloride 97 mmol/L (98-108); Estimated Glomerular Filt Rate > 60; Glucose 102 mg/dL (70-99); Osmolality Calculated 277 mOsm/kg (285-295); Potassium 4.2 mmol/L (3.5-5.1); Sodium 132 mmol/L (136-145); Total Protein 7.6 g/dL (6.4-8.2); Troponin I 11.1 ng/L (0.00-60.4)
[2020-10-11 13:53] LABS: INR 0.9; Partial Thromboplastin Time 22.2 SEC (23.90-30.70); Prothrombin Time 10.1 Seconds (9.50-12.10)
[2020-10-11 14:00] LABS: Band Neutrophils Percent 0 % (0-6); Eosinophils Absolute Manual 0.22 K/mm3 (0.02-0.5); Eosinophils Percent Manual 6 % (1-6); Lymphocytes Absolute Manual 0.59 K/mm3 (1.1-4.5); Lymphocytes Percent Manual 16 % (18-44); Monocytes Absolute Manual 1.07 K/mm3 (0.1-0.90); Monocytes Percent Manual 29 % (3-9); Neutrophils Absolute Manual 1.81 K/mm3 (1.3-6.7); Neutrophils Percent Manual 49 % (46-73); Platelet Estimate Adequate (Adequate); Total Cells Counted 100
[2020-10-11 14:22] VITALS: O2SAT 100
[2020-10-11] MEDS: predniSONE 20 MG TABLET 60 MG PO (14:39)
[2020-10-11 14:49] VITALS: PULSE 87; RESP 15; O2SAT 100
== END 2020-10-11 14:50 | disposition home or self-care (01) ==
PROVIDERS: Emergency Provider Emergency Medicine; PCP Internal Medicine
DX: J44.9 Chronic obstructive pulmonary disease, unspecified (principal); E78.5 Hyperlipidemia, unspecified; I10 Essential (primary) hypertension; F17.200 Nicotine dependence, unspecified, uncomplicated
CPT/HCPCS: 36415; 36600; 71046; 80053; 82805; 83880; 84484; 85025; 85610; 85730; 87040; 93005; 94640; 96374; 99283; 99284; J2930; J7512

== ENCOUNTER 2021-02-04 08:34 | Outpatient (CLI) | payer MEDICARE, SELFPAY | END 2021-02-04 08:35 | disposition home or self-care (01) | LOC: CHSLAB 08:38 | PROVIDERS: PCP Internal Medicine | DX: A31.0 Pulmonary mycobacterial infection (principal) | CPT/HCPCS: 87015; 87116; 87206 ==

== ENCOUNTER 2021-04-30 19:20 | Inpatient (IN) | payer MEDICARE, MEDICAID, SELFPAY ==
[2021-04-30] VITALS (11 sets, daily range): BP systolic 132–154; BP diastolic 70–89; PULSE 68–94; RESP 16–24; TEMP 36.3–37.2; O2SAT 94–100
--- NOTE | ~2021-04-30 | XR_ITS ---
EXAMINATION: XR chest 1V portable DATE: 04/30/2021 20:28 INDICATION: Shortness of breath. TECHNIQUE: A single frontal view of the chest was obtained on 2 radiographs. COMPARISON: Chest 2 views 10/11/2020, chest CT 11/07/2019 FINDINGS: The lungs are hyperexpanded with lucencies, consistent with emphysema. There are mild patch y airspace opacities in the upper lobes. There is mild atelectasis in lingula. A calcified left lung nodule is consistent with old granulomatous disease. No pleural effusion or pneumothorax. The heart s ize is normal. There is a right internal jugular port tip in superior vena cava. IMPRESSION: 1. Stable mild patchy airspace opacities in the upper lobes, likely chronic infection. 2. Emphysema. Reviewed, dictated and finalized at location A. IMPRESSION: 1. Stable mild patchy airspace opacities in the upper lobes, likely chronic inf ection. 2. Emphysema.
--- NOTE | 2021-04-30 19:52 | ECG_ITS ---
Measurements Intervals [place] Rate: 89 P: 80 OR: 185 QRS: -76 QRSD: 128 T: -40 QT: 376 QTc: 460 Interpretive Statements SINUS RHYTHM INTRAVENTRICULAR CONDUCTION DELAY CANNOT RULE OUT SEPTAL INFARCT, AGE INDETERMINATE BORDERLINE T WAVE ABNORMALITY- INFERIOR LEADS BASELINE ARTIFACT- II, III, AVR, AVL, AVF, V5 ABNORMAL ECG Electronically Signed On 05-02-2021 9:35:38 CDT by Kevin Cervantes D.O.
--- NOTE | 2021-04-30 19:53 | ED.SOB ---
HPI - SOB/Dyspnea General Chief Complaint: Shortness of Breath/Dyspnea Stated Complaint: unknown Time Seen by Provider: 04/30/21 19:45 Source: patient Mode of arrival: ambulatory Limitations: no limitations History of Present Illness HPI Narrative: Patient is brought in by EMS. HE complains of increasing shortness of breath over 2 days. No fever, no chills, no chest pain, no leg swelling. MD elicited complaint: shortness of breath Pertinent past history: COPD Onset (ago): day(s) Timing: intermittent Severity: moderate Exacerbating factors: exertion Known history of: COPD Associated symptoms: denies other symptoms Treatment prior to arrival: bronchodilator Related Data Home Medications Medication Instructions Recorded Confirmed acetaminophen 500 mg capsule 500 mg PO Q6H 10/17/19 04/30/21 aspirin 81 mg tablet,delayed 81 mg PO DAILY 10/17/19 04/30/21 release atorvastatin 10 mg tablet 10 mg PO DAILY 10/17/19 04/30/21 carvedilol 12.5 mg tablet 12.5 mg PO BID tablet 10/17/19 04/30/21 cyclobenzaprine 10 mg tablet 10 mg PO TID PRN 10/17/19 04/30/21 diclofenac sodium 75 mg 75 mg PO BID 10/17/19 04/30/21 tablet,delayed release diphenhydramine HCl 50 mg capsule 50 mg PO Q6H PRN 10/17/19 04/30/21 fluticasone propionate 50 1 spray NASAL DAILY 10/17/19 04/30/21 mcg/actuation nasal spray,suspension folic acid 1 mg tablet 1 mg PO DAILY 10/17/19 04/30/21 lisinopril 20 mg tablet 20 mg PO BID 10/17/19 04/30/21 risperidone 2 mg tablet 2 mg PO BID 10/17/19 04/30/21 sumatriptan succinate 100 mg tablet 100 mg PO ONCE 10/17/19 04/30/21 famotidine 20 mg tablet 20 mg PO BID tablet 10/20/19 04/30/21 topiramate 25 mg capsule,extended 25 mg PO BID cap 04/19/20 04/30/21 release 24 hr verapamil 80 mg tablet 80 mg PO BID tablet 04/19/20 04/30/21 albuterol sulfate [ProAir HFA] 2 puff INHALATION QID 07/29/20 04/30/21 azithromycin 250 mg PO DAILY 07/29/20 04/30/21 ferrous sulfate 325 mg PO DAILY 07/29/20 04/30/21 lnvvtvwxldt-iqsllvaog-vjskqnwf 1 inh INHALATION DAILY 07/29/20 04/30/21 [Trelegy Ellipta] loperamide 2 mg PO PRN PRN 07/29/20 04/30/21 ondansetron HCl 8 mg PO DAILY PRN 07/29/20 04/30/21 prochlorperazine maleate 10 mg PO Q6-8H PRN 07/29/20 04/30/21 ethambutol 400 mg PO DAILY 10/11/20 04/30/21 rifampin 600 mg PO DAILY 10/11/20 04/30/21 Allergies Allergy/AdvReac Type Severity Reaction Status Date / Time Sulfa (Sulfonamide Allergy Rash Verified 07/16/20 01:03 Antibiotics) Review of Systems Constitutional: Constitutional: Reports no additional constitutional complaints Eyes: Eyes: Reports no additional eye complaints ENT: Reports system reviewed and no additional complaints, except as documented Cardiovascular: Cardiovascular: Reports no additional cardiovascular complaints Respiratory: Respiratory: Reports no additional respiratory complaints Gastrointestinal: Gastrointestinal: Reports no additional gastrointestinal complaints Genitourinary: Genitourinary: Reports no additional male genitourinary complaints Musculoskeletal: Musculoskeletal: Reports no additional musculoskeletal complaints Integumentary/Breasts: Skin/Breast: Reports system reviewed and no additional complaints, except as docu Neurologic: Reports system reviewed and no additional complaints, except as documented Psychiatric: Psychiatric: Reports no additional psychiatric complaints Endocrine: Endocrine: Reports no additional endocrine complaints Hematologic/Lymphatic: Hematologic/Lymphatic: Reports no additional hematologic/lymphatic complaints Allergic/Immunologic: Allergic/Immunologic: Reports no additional allergic/immunologic complaints [facility] Past Medical History Medical History Bipolar 2 disorder Chronic obstructive pulmonary disease, unspecified Chronic systolic heart failure [place] (dyspnea on exertion) Dyslipidemia Essential hypertension Smoking Unspecified systolic (congestive)
[2021-04-30 20:12] LABS: Basophils Absolute Auto 0.02 K/mm3 (0.00-0.10); Basophils Percent Auto 0.3 % (0.0-1.0); Eosinophils Absolute Auto 0.01 K/mm3 (0.02-0.50); Eosinophils Percent Auto 0.2 % (1.0-6.0); Hematocrit 42.3 % (37.0-46.0); Immature Granulocyte Absolute 0.02 K/mm3 (0.00-0.00); Immature Granulocyte Percent A 0.3 % (0.0-0.0); Lymphocytes Absolute Auto 0.18 K/mm3 (1.10-4.50); Mean Corpuscular HGB Conc 33.1 g/dL (32.0-36.0); Mean Corpuscular Hemoglobin 32.3 pg (27.0-31.0); Mean Corpuscular Volume 97.7 fL (78.0-102.0); Mean Platelet Volume 9.4 fl (8.7-11.0); Monocytes Absolute Auto 0.43 K/mm3 (0.10-0.90); Monocytes Percent Auto 7.1 % (2.0-11.0); Neutrophils Absolute Auto 5.4 K/mm3 (1.7-7.2); Neutrophils Percent Auto 89.1 % (50.0-70.0); Platelet Count Result 218 K/mm3 (150-420); Red Blood Count 4.33 M/mm3 (4.70-6.10); White Blood Count 6.1 K/mm3 (4.8-10.8)
[2021-04-30 20:28] LABS: D Dimer 0.23 mg/L (0.19-0.50)
[2021-04-30 20:40] LABS: Alanine Aminotransferase 37 U/L (16-63); Albumin Level 3.3 g/dL (3.4-5.0); Alkaline Phosphatase 90 U/L (46-116); Anion Gap 4 mmol/L (8-16); Aspartate Amino Transferase 23 U/L (15-37); Bilirubin,Total 0.3 mg/dL (0.00-1.00); Blood Urea Nitrogen 20 mg/dL (7-18); Calcium 8.7 mg/dL (8.5-10.1); Carbon Dioxide 30 mmol/L (21-32); Chloride 95 mmol/L (98-108); Estimated CRCL calculation 81 ml/min; Estimated Glomerular Filt Rate > 60; Glucose 124 mg/dL (70-99); Osmolality Calculated 271 mOsm/kg (285-295); Potassium 4.3 mmol/L (3.5-5.1); Sodium 129 mmol/L (136-145); Total Protein 6.9 g/dL (6.4-8.2); Troponin I 20.5 ng/L (0.00-60.4)
[2021-04-30 20:41] LABS: NT Pro B Type Natriuretic Pept 4829 pg/mL (0-125)
[2021-04-30 21:53] LABS: Base Excess ABG 0.8 mmol/L (0-2); HCO3 ABG 30.9 mmol/L (23-29); Oxygen Content ABG 18.7 %vol (16.0-22.0); Oxygen Saturation ABG 95.4 % (95-97); Oxyhemoglobin 86.7 % (94-100); PO2 ABG 84.9 mmHg (75-85); Total Hemoglobin 15.3 g/dL (12.0-18.0); pH ABG 7.23 (7.35-7.45)
[2021-04-30 21:55] LABS: Device NASAL CANNULA; Modified Allen's Test Pass; Site Drawn RIGHT RADIAL
[2021-04-30 21:56] LABS: PCO2 ABG 75.2 mmHg (35-45)
[2021-04-30] MEDS: IPRATROPIUM 0.5 MG/ALBUTEROL SULFATE 2.5 MG AMPUL.NEB 3 ML INHALATION (22:47)
--- NOTE | 2021-04-30 23:12 | PC.NURSE ---
pt transported to floor via stretcher with resp tech fany, security staff kymberly, assigned nurse, ARSEN Bruce
[2021-04-30] MEDS: methylPREDNISolone SOD SUCC 125 MG VIAL 60 MG IV PUSH (23:41)
[2021-05-01] VITALS (14 sets, daily range): BP systolic 123–164; BP diastolic 69–79; PULSE 85–107; RESP 20–22; TEMP 36.4–37.7; O2SAT 91–100
[2021-05-01] MEDS: IPRATROPIUM 0.5 MG/ALBUTEROL SULFATE 2.5 MG AMPUL.NEB 3 ML INHALATION ×4 (00:32→23:39)
--- NOTE | 2021-05-01 01:01 | PC.NURSE ---
PATIENT ADMITTED TO ROOM 208 PER STRETCHER FROM ER, IS LETHARGIC AND UNABLE TO ANSWER MOST QUESTIONS. BIPAP APPLIED PER RT.
[2021-05-01 05:51] LABS: Hematocrit 42.9 % (37.0-46.0); Hemoglobin 14.1 g/dL (12.4-15.3); Mean Corpuscular HGB Conc 32.9 g/dL (32.0-36.0); Mean Corpuscular Hemoglobin 32.8 pg (27.0-31.0); Mean Corpuscular Volume 99.8 fL (78.0-102.0); Mean Platelet Volume 9.8 fl (8.7-11.0); Platelet Count Result 237 K/mm3 (150-420); Red Cell Distribution Width 12.1 % (11.6-14.4); White Blood Count 3.6 K/mm3 (4.8-10.8)
[2021-05-01] MEDS: methylPREDNISolone SOD SUCC 125 MG VIAL 60 MG IV PUSH ×4 (05:59→23:41)
[2021-05-01 06:29] LABS: Neutrophils Percent Manual 87 % (46-73)
[2021-05-01 06:30] LABS: Band Neutrophils Percent 0 % (0-6); Basophils Percent Manual 0 % (0-1); Eosinophils Percent Manual 0 % (1-6); Lymphocytes Absolute Manual 0.36 K/mm3 (1.1-4.5); Lymphocytes Percent Manual 10 % (18-44); Monocytes Percent Manual 3 % (3-9); Neutrophils Absolute Manual 3.13 K/mm3 (1.3-6.7); Platelet Estimate Adequate (Adequate)
[2021-05-01] MEDS: ENOXAPARIN 40 MG/0.4 ML SYRINGE SUB-Q (08:44)
[2021-05-01 13:20] LABS: Base Excess ABG 9.1 mmol/L (0-2); Carboxyhemoglobin 2.8 % (0-1.5); HCO3 ABG 37.2 mmol/L (23-29); Methemoglobin ABG 0.4 % (0-1.5); Oxygen Content ABG 19.2 %vol (16.0-22.0); Oxygen Saturation ABG 96.3 % (95-97); Oxyhemoglobin 93.2 % (94-100); PCO2 ABG 66.1 mmHg (35-45); PO2 ABG 83.5 mmHg (75-85); Reduced Hemoglobin 3.6 % (0-1.5); Total Hemoglobin 14.6 g/dL (12.0-18.0); pH ABG 7.37 (7.35-7.45)
[2021-05-01 13:45] LABS: Device NASAL CANNULA; Modified Allen's Test Pass; Site Drawn RIGHT RADIAL
[2021-05-01] MEDS: risperiDONE 1 MG TABLET 2 MG PO (15:10)
--- NOTE | 2021-05-01 16:06 | PM.IMHP ---
H&P: HPI History of Present Illness Date/Time: 05/01/21 16:06 Lui Goodwin is a 70 year old male who comes to the hospital from [place]. He states he was experiencing shortness of breath for about a day. He states he has an albuterol MDI and a NEB machine but no medicine to put in to the NEB machine. When I saw him today in the room his face was reddish blue likely due to the fact he refused to wear his BiPAP. Patient also refused nebulizer treatments. The few attempts were made to get patient understands importance of wearing a BiPAP however he stated he was unable to tolerate it did not like it and did not want to wear it and that he did not want any nebulizer treatments stating that he would be okay. PMHx includes: Bipolar, COPD, dyspnea on exertion, hyperlipidemia, hypertension, congestive heart failure, and patient continues to smoke. <OMID Liu - Last Filed: 05/01/21 17:11> Chief Complaint: SOB <OMID Liu - Last Filed: 05/01/21 17:11> Review of Systems Review of Systems: All systems reviewed & are unremarkable except as noted in HPI and below <OMID Liu - Last Filed: 05/01/21 17:11> [facility] Past Medical History Medical History: Medical History (Updated 05/01/21 @ 16:55 by OMID Liu) Bipolar 2 disorder Body mass index [BMI] 20.0-20.9, adult (03/17/19) Chronic obstructive pulmonary disease, unspecified Chronic systolic heart failure [place] (dyspnea on exertion) Dyslipidemia Essential hypertension Smoking Unspecified systolic (congestive) heart failure <OMID Liu - Last Filed: 05/01/21 17:11> Family History Family History: Family History (Updated 04/30/21 @ 21:59 by Diogo Ellsworth MD) Other Family history non-contributory <OMID Liu - Last Filed: 05/01/21 17:11> Social History Social History: Social History Smoking packs per day: 0.5 Smoking cigarettes per day: 10.0 Years smoked: 50 Smoking pack-years: 25.00 Smoking status: Current every day smoker Tobacco type: cigarettes Alcohol intake: unknown Drinks per week: 0 Substance use: unknown Gender identity (if verbalized by the patient): Male Spiritual care concerns: No Agree to blood products: Yes <Stas Jacques, RESEARCH QUALITY ASSURANCE SPECIALIST-C - Last Filed: 05/01/21 17:11> Meds Home Medications and Allergies Home medications: Home Medications Medication Instructions Recorded Confirmed Type acetaminophen 500 mg capsule 500 mg PO Q6H 10/17/19 04/30/21 History aspirin 81 mg tablet,delayed 81 mg PO DAILY 10/17/19 04/30/21 History release atorvastatin 10 mg tablet 10 mg PO DAILY 10/17/19 04/30/21 History carvedilol 12.5 mg tablet 12.5 mg PO BID tablet 10/17/19 04/30/21 History cyclobenzaprine 10 mg tablet 10 mg PO TID PRN 10/17/19 04/30/21 History diclofenac sodium 75 mg 75 mg PO BID 10/17/19 04/30/21 History tablet,delayed release diphenhydramine HCl 50 mg capsule 50 mg PO Q6H PRN 10/17/19 04/30/21 History fluticasone propionate 50 1 spray NASAL DAILY 10/17/19 04/30/21 History mcg/actuation nasal spray,suspension folic acid 1 mg tablet 1 mg PO DAILY 10/17/19 04/30/21 History lisinopril 20 mg tablet 20 mg PO BID 10/17/19 04/30/21 History risperidone 2 mg tablet 2 mg PO BID 10/17/19 04/30/21 History sumatriptan succinate 100 mg tablet 100 mg PO ONCE 10/17/19 04/30/21 History famotidine 20 mg tablet 20 mg PO BID tablet 10/20/19 04/30/21 History potassium chloride 10 meq PO DAILY #30 tablet 11/09/19 04/30/21 Rx topiramate 25 mg capsule,extended 25 mg PO BID cap 04/19/20 04/30/21 History release 24 hr verapamil 80 mg tablet 80 mg PO BID tablet 04/19/20 04/30/21 History albuterol sulfate [ProAir HFA] 2 puff INHALATION QID 07/29/20 04/30/21 History azithromycin 250 mg PO DAILY 07/29/20 04/30/21 History ferrous sulfate 325 mg PO DAILY 07/29/20 04/30/21 History evgnpbwlbbd-ahpkbwffi-koortjp
[2021-05-01] MEDS: carvediloL 12.5 MG TABLET PO (16:45)
[2021-05-01] MEDS: DICLOFENAC SOD 75 MG TABLET.EC PO (16:46)
[2021-05-01] MEDS: IPRATROPIUM 0.5 MG/ALBUTEROL SULFATE 2.5 MG AMPUL.NEB 3 ML 9 ML INHALATION (16:54)
[2021-05-01] MEDS: FAMOTIDINE 20 MG TABLET PO (20:48)
[2021-05-01] MEDS: lisinopriL 20 MG TABLET PO (20:48)
[2021-05-01] MEDS: VERAPAMIL HCL 80 MG TABLET PO (21:33)
[2021-05-02] VITALS (17 sets, daily range): BP systolic 131–170; BP diastolic 58–93; PULSE 65–90; RESP 12–22; TEMP 36.6–37.3; O2SAT 91–99
--- NOTE | 2021-05-02 00:24 | PC.NURSE ---
Patient removed IV and oxygen. Stated this was bullshit and was leaving. Nurse pointed out he did not have a ride back to facility.Refused to allow another IV. Doctor notified.
[2021-05-02] MEDS: IPRATROPIUM 0.5 MG/ALBUTEROL SULFATE 2.5 MG AMPUL.NEB 3 ML INHALATION ×5 (05:37→22:57)
--- NOTE | 2021-05-02 08:38 | PC.NURSE ---
Feeling more SOB at this time, audible wheeze noted, hospitalist notified, PO per monitor ranges from 96-100%, oxygen noted to be at 3 L NC on the wall.
[2021-05-02] MEDS: POTASSIUM CHLORIDE 10 MEQ TABLET PO (09:20)
[2021-05-02] MEDS: ASPIRIN 81 MG ENTERIC TABLET PO (09:21)
[2021-05-02] MEDS: risperiDONE 1 MG TABLET 2 MG PO (09:21)
[2021-05-02] MEDS: FAMOTIDINE 20 MG TABLET PO ×2 (09:22→21:26)
[2021-05-02] MEDS: FOLIC ACID 1 MG TABLET PO (09:22)
[2021-05-02] MEDS: DICLOFENAC SOD 75 MG TABLET.EC PO ×2 (09:22→16:34)
[2021-05-02] MEDS: lisinopriL 20 MG TABLET PO ×2 (09:22→21:26)
[2021-05-02] MEDS: FERROUS SULFATE 324 MG TABLET PO (09:23)
[2021-05-02] MEDS: ENOXAPARIN 40 MG/0.4 ML SYRINGE SUB-Q (09:23)
[2021-05-02] MEDS: VERAPAMIL HCL 80 MG TABLET PO ×2 (09:23→21:26)
[2021-05-02] MEDS: carvediloL 12.5 MG TABLET PO ×2 (09:23→16:34)
[2021-05-02] MEDS: ATORVASTATIN 10 MG TABLET PO (09:26)
[2021-05-02 10:04] LABS: Hematocrit 41.1 % (37.0-46.0); Hemoglobin 13.2 g/dL (12.4-15.3); Mean Corpuscular HGB Conc 32.1 g/dL (32.0-36.0); Mean Corpuscular Volume 99.8 fL (78.0-102.0); Mean Platelet Volume 9.3 fl (8.7-11.0); Platelet Count Result 222 K/mm3 (150-420); Red Blood Count 4.12 M/mm3 (4.70-6.10); Red Cell Distribution Width 11.9 % (11.6-14.4); White Blood Count 4.7 K/mm3 (4.8-10.8)
[2021-05-02 10:45] LABS: Anion Gap 3 mmol/L (8-16); Blood Urea Nitrogen 22 mg/dL (7-18); Calcium 8.6 mg/dL (8.5-10.1); Carbon Dioxide 37 mmol/L (21-32); Chloride 94 mmol/L (98-108); Estimated CRCL calculation 92 ml/min; Estimated Glomerular Filt Rate > 60; Glucose 164 mg/dL (70-99); Osmolality Calculated 285 mOsm/kg (285-295); Potassium 4.3 mmol/L (3.5-5.1); Sodium 134 mmol/L (136-145)
[2021-05-02 10:59] LABS: Potassium 4.4 mmol/L (3.5-5.1)
[2021-05-02] MEDS: methylPREDNISolone SOD SUCC 125 MG VIAL 60 MG IV PUSH ×3 (11:20→23:46)
--- NOTE | 2021-05-02 19:29 | PM.IMPN ---
Progress Note: A&P Assessment and Plan (1) COPD exacerbation: Code(s): J44.1 - Chronic obstructive pulmonary disease with (acute) exacerbation Status: Acute Assessment and Plan: Increased O2 demand, refuses BiPAP, was refusing NEBs however he finally agreed to have a treatment, SpO2 has been from 70s-90s, HR > 100, Solu-Medrol 60 mg Q6Hm Azithromycin, Rocephin, DuoNeb Q6H, 1 time continuous DuoNeb (when he did finally agree to take the NEB treatment he felt better after about 5 minutes 05/02/2021 Oxygen demand still present, patient still refuses BiPAP, he does request neb treatments, his face usually stays a little red and when he takes his oxygen off after while he does become a little more blue. (2) Bipolar 2 disorder: Code(s): F31.81 - Bipolar II disorder Status: Inactive Assessment and Plan: Continue Risperidone, monitor Pt (3) Essential hypertension: Code(s): I10 - Essential (primary) hypertension Status: Acute Assessment and Plan: Continue Lisinopril, Verapamil, Coreg, monitor Pt and make changes when needed 05/02/2021 Blood pressure has been controlled he did have 1 reading at 1600 hours of 170/93, will continue to monitor make changes to medications as needed (4) Unspecified systolic (congestive) heart failure: Qualifiers: Heart failure chronicity: chronic Qualified Code(s): I50.22 - Chronic systolic (congestive) heart failure Code(s): I50.20 - Unspecified systolic (congestive) heart failure Status: Acute Assessment and Plan: Continue Coreg (5) Dyslipidemia: Code(s): E78.5 - Hyperlipidemia, unspecified Status: Acute Assessment and Plan: Continue Atorvastatin (6) Smoking: Code(s): F17.200 - Nicotine dependence, unspecified, uncomplicated Status: Acute Assessment and Plan: Pt still smokes, fingers and facial hair stained from the smoke, will give Pt smoking cessation information Subjective Date/time seen: 05/02/21 19:29 Patient was in room this morning sitting at side of his bed with a little labored breathing. Has the patient how he was doing and his response was he wanted a neb treatment which are ordered for him. Other than this patient did not complain of any chest pain abdominal pain fevers chills nausea or vomiting. Patient still refuses the BiPAP. He did tell me that he is not allowed to [facility]. Review of Systems Review of Systems: All systems reviewed & are unremarkable except as noted in HPI and below Objective Data Vital Signs Vital Signs: Vital Signs - 24 hr 05/01/21 22:09 05/01/21 23:40 05/01/21 23:42 Temperature 98.9 F Pulse Rate 90 90 85 Respiratory Rate 20 22 H 20 Blood Pressure 136/70 Pulse Oximetry 97 98 100 05/01/21 23:46 05/02/21 04:41 05/02/21 05:39 Temperature 98.9 F 98.2 F Pulse Rate 90 77 83 Respiratory Rate 20 20 22 H Blood Pressure 136/70 131/58 L Pulse Oximetry 100 96 91 05/02/21 05:49 05/02/21 08:00 05/02/21 08:50 Temperature 98.8 F Pulse Rate 86 70 90 Respiratory Rate 20 18 16 Blood Pressure 140/60 Pulse Oximetry 95 96 93 05/02/21 09:01 05/02/21 09:23 05/02/21 11:31 Temperature Pulse Rate 88 68 78 Respiratory Rate 16 22 H Blood Pressure Pulse Oximetry 99 94 05/02/21 11:38 05/02/21 12:00 05/02/21 16:00 Temperature 97.8 F 99.1 F Pulse Rate 82 65 70 Respiratory Rate 22 H 18 16 Blood Pressure 140/60 170/93 H Pulse Oximetry 95 98 95 05/02/21 16:34 05/02/21 17:15 05/02/21 17:18 Temperature Pulse Rate 70 90 90 Respiratory Rate 14 14 Blood Pressure Pulse Oximetry Intake/Output Intake/Output: Intake & Output 04/29/21 04/30/21 05/01/21 05/02/21 23:59 23:59 23:59 23:59 Intake Total 6683.679 2228 Output Total 800 Balance 156.550 2270 Meds/Results Medications: Active Medications Generic Name Dose Route Start Last Admin Trade Name Freq
--- NOTE | 2021-05-02 23:57 | PC.NURSE ---
Pt given methylprednisolone 60 mg IVP as ordered.
[2021-05-03] VITALS (17 sets, daily range): BP systolic 147–175; BP diastolic 60–115; PULSE 65–90; RESP 16–26; TEMP 35.9–37.1; O2SAT 88–100
--- NOTE | 2021-05-03 03:29 | PC.NURSE ---
Notified Dr. 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 New orders received of noted.
[2021-05-03] MEDS: IPRATROPIUM 0.5 MG/ALBUTEROL SULFATE 2.5 MG AMPUL.NEB 3 ML INHALATION ×3 (05:25→18:20)
[2021-05-03 05:48] LABS: Base Excess ABG 9.4 mmol/L (0-2); HCO3 ABG 36.2 mmol/L (23-29); Oxygen Content ABG 20.6 %vol (16.0-22.0); Oxygen Saturation ABG 98.5 % (95-97); Oxyhemoglobin 96.5 % (94-100); PCO2 ABG 57.4 mmHg (35-45); PO2 ABG 137.4 mmHg (75-85); pH ABG 7.42 (7.35-7.45)
[2021-05-03 05:50] LABS: Hematocrit 42.8 % (37.0-46.0); Hemoglobin 14.1 g/dL (12.4-15.3); Mean Corpuscular HGB Conc 32.9 g/dL (32.0-36.0); Mean Corpuscular Hemoglobin 32.2 pg (27.0-31.0); Mean Corpuscular Volume 97.7 fL (78.0-102.0); Mean Platelet Volume 9.4 fl (8.7-11.0); Platelet Count Result 246 K/mm3 (150-420); Red Blood Count 4.38 M/mm3 (4.70-6.10); Red Cell Distribution Width 11.6 % (11.6-14.4); White Blood Count 4.2 K/mm3 (4.8-10.8)
[2021-05-03 06:02] LABS: Device NASAL CANNULA; Modified Allen's Test Pass; Site Drawn LEFT BRACHIAL
[2021-05-03] MEDS: methylPREDNISolone SOD SUCC 125 MG VIAL 60 MG IV PUSH (06:04)
[2021-05-03 06:11] LABS: Anion Gap 4 mmol/L (8-16); Blood Urea Nitrogen 16 mg/dL (7-18); Calcium 8.7 mg/dL (8.5-10.1); Carbon Dioxide 35 mmol/L (21-32); Chloride 94 mmol/L (98-108); Estimated CRCL calculation 96 ml/min; Estimated Glomerular Filt Rate > 60; Glucose 127 mg/dL (70-99); Osmolality Calculated 279 mOsm/kg (285-295); Potassium 4.5 mmol/L (3.5-5.1); Sodium 133 mmol/L (136-145)
--- NOTE | 2021-05-03 06:11 | PC.NURSE ---
Pt given methylprednisolone 60 mg IVP as ordered.
[2021-05-03] MEDS: ALBUTEROL SULFATE (*SP) INHALER 2 PUFF INHALATION (09:13)
[2021-05-03] MEDS: risperiDONE 1 MG TABLET 2 MG PO (09:15)
[2021-05-03] MEDS: ENOXAPARIN 40 MG/0.4 ML SYRINGE SUB-Q (09:15)
[2021-05-03] MEDS: POTASSIUM CHLORIDE 10 MEQ TABLET PO (09:16)
[2021-05-03] MEDS: carvediloL 12.5 MG TABLET PO ×2 (09:16→18:22)
[2021-05-03] MEDS: ASPIRIN 81 MG ENTERIC TABLET PO (09:16)
[2021-05-03] MEDS: ATORVASTATIN 10 MG TABLET PO (09:17)
[2021-05-03] MEDS: FAMOTIDINE 20 MG TABLET PO ×2 (09:17→21:14)
[2021-05-03] MEDS: lisinopriL 20 MG TABLET PO ×2 (09:17→21:14)
[2021-05-03] MEDS: FOLIC ACID 1 MG TABLET PO (09:17)
[2021-05-03] MEDS: VERAPAMIL HCL 80 MG TABLET PO ×2 (09:18→21:14)
[2021-05-03] MEDS: DICLOFENAC SOD 75 MG TABLET.EC PO ×2 (09:18→18:22)
[2021-05-03] MEDS: FERROUS SULFATE 324 MG TABLET PO (09:18)
[2021-05-03] MEDS: CENTRAL LINE FLUSH 10 ML IV PUSH (14:09)
--- NOTE | 2021-05-03 14:14 | PM.DS ---
DS: Admitting Diagnosis Admitting Diagnosis COPD exacerbation <PRERNA Cortes - Last Filed: 05/03/21 14:25> DS: Discharge Diagnosis Discharge Diagnosis (1) COPD exacerbation: Code(s): J44.1 - Chronic obstructive pulmonary disease with (acute) exacerbation <PRERNA Cortes - Last Filed: 05/03/21 14:25> Status: Acute <PRERNA Cortes - Last Filed: 05/03/21 14:25> Assessment and Plan: Increased O2 demand, refuses BiPAP, was refusing NEBs however he finally agreed to have a treatment, SpO2 has been from 70s-90s, HR > 100, Solu-Medrol 60 mg Q6Hm Azithromycin, Rocephin, DuoNeb Q6H, 1 time continuous DuoNeb (when he did finally agree to take the NEB treatment he felt better after about 5 minutes 05/02/2021 Oxygen demand still present, patient still refuses BiPAP, he does request neb treatments, his face usually stays a little red and when he takes his oxygen off after while he does become a little more blue. Patient leaving AMA today given azithromycin as well as cefdinir and steroids <PRERNA Cortes - Last Filed: 05/03/21 14:25> (2) Bipolar 2 disorder: Code(s): F31.81 - Bipolar II disorder <PRERNA Cortes - Last Filed: 05/03/21 14:25> Status: Inactive <PRERNA Cortes - Last Filed: 05/03/21 14:25> Assessment and Plan: Continue Risperidone, monitor Pt Patient leaving AMA <PRERNA Cortes - Last Filed: 05/03/21 14:25> (3) Essential hypertension: Code(s): I10 - Essential (primary) hypertension <PRERNA Cortes - Last Filed: 05/03/21 14:25> Status: Acute <PRERNA Cortes - Last Filed: 05/03/21 14:25> Assessment and Plan: Continue Lisinopril, Verapamil, Coreg, monitor Pt and make changes when needed 05/02/2021 Blood pressure has been controlled he did have 1 reading at 1600 hours of 170/93, will continue to monitor make changes to medications as needed Patient leaving AMA <PRERNA Cortes - Last Filed: 05/03/21 14:25> (4) Unspecified systolic (congestive) heart failure: Qualifiers: Heart failure chronicity: chronic Qualified Code(s): I50.22 - Chronic systolic (congestive) heart failure <STEVIE CortesC - Last Filed: 05/03/21 14:25> Code(s): I50.20 - Unspecified systolic (congestive) heart failure <DELANEY Cortes-C - Last Filed: 05/03/21 14:25> Status: Acute <PRERNA Cortes - Last Filed: 05/03/21 14:25> Assessment and Plan: Continue Coreg Patient leaving AMA <PRERNA Cortes - Last Filed: 05/03/21 14:25> (5) Dyslipidemia: Code(s): E78.5 - Hyperlipidemia, unspecified <STEVIE CortesC - Last Filed: 05/03/21 14:25> Status: Acute <PRERNA Cortes - Last Filed: 05/03/21 14:25> Assessment and Plan: Continue Atorvastatin Patient leaving AMA <DELANEY Cortes-C - Last Filed: 05/03/21 14:25> (6) Smoking: Code(s): F17.200 - Nicotine dependence, unspecified, uncomplicated <STEVIE CortesC - Last Filed: 05/03/21 14:25> Status: Acute <DELANEY Cortes-C - Last Filed: 05/03/21 14:25> Assessment and Plan: Pt still smokes, fingers and facial hair stained from the smoke, will give Pt smoking cessation information Patient up in AMA <PRERNA Cortes - Last Filed: 05/03/21 14:25> DS: Summary Hospital Course Reason for hospitalization: Shortness of breath <PRERNA Cortes - Last Filed: 05/03/21 14:25> Hospital Course: Lui Goodwin is a 70 year old male who comes to the hospital from [place]. He states he was experiencing shortness of breath for about a day. He states he has an albuterol MDI and a NEB machine but no medicine to put in to the NEB machine. Patient was noncompliant with treatment and refused several his treatment plans. Patient
--- NOTE | 2021-05-03 15:40 | HOMEO2EVAL ---
Evaluation was performed at [facility] Home Oxygen Evaluation RC: Home Oxygen (O2) Evaluation Start: 05/03/21 14:50 Freq: ONCE Status: Active Protocol: RPE Activity Type Activity Date Activity User E-Sign Co-Sign Detail Recorded Client Recorded Date Recorded By Document 05/03/21 15:26 SJB [id number] 05/03/21 15:39 SJB Document 05/03/21 15:27 SJB [id number] 05/03/21 15:39 SJB 05/03/21 05/03/21 15:26 15:27 Home O2 Evaluation Test Phase Resting Exercise Oxygen Delivery Room Air Room Air Pulse Oximetry (90-100 %) 100 89 L Pulse Rate (60-100 beats/min) 68 90 Activity Tolerance Good Good Rating of Perceived Dyspnea (PD) +2 Mild, Some +2 Mild, Some Difficulty, Difficulty, Noticeable to Noticeable to the Observer the Observer Rate of Perceived Exertion (PE) 11 Fairly light 12 Ambulation Distance (feet) 350 Home Oxygen Evaluation Comments PT WALKED APPROX 350 FT ON ROOM AIR. SP02 WENT DOWN TO 89%, QUICKLY REBOUNDING TO [address]B ENCOURAGED. Treatment Charges O2 Evaluation - Inpatient
[2021-05-03] MEDS: AZITHROMYCIN 250 MG TABLET 500 MG PO (21:14)
[2021-05-03] MEDS: CEFDINIR 300 MG CAPSULE PO (21:14)
[2021-05-04] VITALS (7 sets, daily range): BP systolic 143–171; BP diastolic 62–80; PULSE 58–68; RESP 18–20; TEMP 35.8–36.9; O2SAT 88–98
[2021-05-04] MEDS: IPRATROPIUM 0.5 MG/ALBUTEROL SULFATE 2.5 MG AMPUL.NEB 3 ML INHALATION ×2 (00:18→05:34)
--- NOTE | 2021-05-04 02:18 | PC.NURSE ---
Pulse ox prior to breathing treatment at 0018 88%. Pulse ox after breathing treatment 100%.
[2021-05-04 05:46] LABS: Potassium 4.2 mmol/L (3.5-5.1)
[2021-05-04 07:21] LABS: Hematocrit 40.6 % (37.0-46.0); Hemoglobin 13.3 g/dL (12.4-15.3); Mean Corpuscular HGB Conc 32.8 g/dL (32.0-36.0); Mean Corpuscular Hemoglobin 32.1 pg (27.0-31.0); Mean Corpuscular Volume 98.1 fL (78.0-102.0); Mean Platelet Volume 10.2 fl (8.7-11.0); Platelet Count Result 237 K/mm3 (150-420); Red Blood Count 4.14 M/mm3 (4.70-6.10); Red Cell Distribution Width 11.7 % (11.6-14.4); White Blood Count 3.7 K/mm3 (4.8-10.8)
[2021-05-04] MEDS: predniSONE 20 MG TABLET PO (08:01)
--- NOTE | 2021-05-04 09:14 | PM.DS ---
DS: Admitting Diagnosis Admitting Diagnosis sob,copd <PRERNA Cortes - Last Filed: 05/05/21 07:20> DS: Summary Hospital Course Reason for hospitalization: Shortness of breath <PRERNA Cortes - Last Filed: 05/05/21 07:20> Hospital Course: Lui Goodwin is a 70 year old male who comes to the hospital from [place]. He states he was experiencing shortness of breath for about a day. He states he has an albuterol MDI and a NEB machine but no medicine to put in to the NEB machine. Patient was noncompliant with treatment and refused several his treatment plans. Patient is well-known to our establishment and has left here once before AMA today he is once again attempting or threatening to leave AMA. Patient will be given medications to treat his COPD. Patient did not leave AMA yesterday home to [facility] complete no oxygen required. Patient will discharge home today he is currently on room air with no labored wheezing noted. : Bipolar, COPD, dyspnea on exertion, hyperlipidemia, hypertension, congestive heart failure, and patient continues to smoke <PRERNA Cortes - Last Filed: 05/05/21 07:20> Time Spent with Patient Time attestation: Total time spent providing and/or coordinating discharge services: <PRERNA Cortes - Last Filed: 05/05/21 07:20> DS: Data Data Completed and Pending Labs on day of discharge: Labs from last 24 hours 05/04/21 05/04/21 05:10 05:10 WBC 3.7 L RBC 4.14 L Hgb 13.3 Hct 40.6 MCV 98.1 MCH 32.1 H MCHC 32.8 RDW 11.7 Plt Count 237 MPV 10.2 Potassium 4.2 <PRERNA Cortes - Last Filed: 05/05/21 07:20> Discharge Plan Discharge Attending physician on discharge: Petros Ovalles <PRERNA Cortes - Last Filed: 05/05/21 07:20> Petros Ovalles <Petros Ovalles MD - Last Filed: 05/04/21 23:50> Consulting providers: Stas Jacques ; Belen Webb ; Kevin Cervantes ; Cesar Haskins V. <PRERNA Cortes - Last Filed: 05/05/21 07:20> Discharging Clinician: Belen Webb <PRERNA Cortes - Last Filed: 05/05/21 07:20> Belen Webb <Petros Ovalles MD - Last Filed: 05/04/21 23:50> Anticipated Discharge Date/Time: 05/03/21 14:06 <PRERNA Cortes - Last Filed: 05/05/21 07:20> Patient Disposition: Home, Self-Care <PRERNA Cortes - Last Filed: 05/05/21 07:20> Activity: as tolerated <PRERNA Cortes - Last Filed: 05/05/21 07:20> as tolerated <Petros Ovalles MD - Last Filed: 05/04/21 23:50> Diet: low sodium <PRERNA Cortes - Last Filed: 05/05/21 07:20> low sodium <Petros Ovalles MD - Last Filed: 05/04/21 23:50> Discharge Instructions: Follow up with primary care physician in 1-2 weeks. Take medication as prescribed. What are the symptoms of COPD? - At first, COPD often causes no symptoms. As it gets worse it can make you: ?Feel short of breath, especially when you are moving around ?Wheeze (make a whistling or squeaking noise as you breathe) ?Cough and spit up phlegm (mucus) People who have had COPD for a while are also at increased risk for: ?Infections, such as pneumonia ?Lung cancer ?Heart problems <PRERNA Cortes - Last Filed: 05/05/21 07:20> Patient Instructions: Antibiotic Form <PRERNA Cortes - Last Filed: 05/05/21 07:20> Stand Alone Forms: General Discharge Information <PRERNA Cortes - Last Filed: 05/05/21 07:20> Follow-up/Referrals: Daniela Baron MD [Primary Care Provider] - 05/12/21 4:00 pm <DELANEY Cortes-C - Last Filed: 05/05/21 07:20> Discharge Medications: New azithromycin 500 mg tablet 500 mg PO DAILY 10 Days Qty: 10 RF: 0 cefdinir 300 mg capsule 300 mg PO Q12H 7 Days Qty: 14 RF: 0 prednisone 20 mg tablet 20 mg PO DAILY Qty:
[2021-05-04] MEDS: CEFDINIR 300 MG CAPSULE PO (11:04)
[2021-05-04] MEDS: carvediloL 12.5 MG TABLET PO (11:04)
[2021-05-04] MEDS: FAMOTIDINE 20 MG TABLET PO (11:04)
[2021-05-04] MEDS: FERROUS SULFATE 324 MG TABLET PO (11:04)
[2021-05-04] MEDS: POTASSIUM CHLORIDE 10 MEQ TABLET PO (11:05)
[2021-05-04] MEDS: lisinopriL 20 MG TABLET PO (11:05)
[2021-05-04] MEDS: ASPIRIN 81 MG ENTERIC TABLET PO (11:05)
[2021-05-04] MEDS: risperiDONE 1 MG TABLET 2 MG PO (11:05)
[2021-05-04] MEDS: DICLOFENAC SOD 75 MG TABLET.EC PO (11:06)
[2021-05-04] MEDS: FOLIC ACID 1 MG TABLET PO (11:06)
[2021-05-04] MEDS: ATORVASTATIN 10 MG TABLET PO (11:06)
[2021-05-04] MEDS: VERAPAMIL HCL 80 MG TABLET PO (11:10)
--- NOTE | 2021-05-04 13:15 | PC.NURSE ---
Patient was discharged back to [facility], where he lives. He was picked up by [facility] personnel. He was given his discharge summary, along with information regarding his new prescriptions, where to pickling operator the prescriptions, and information about shortness of breath. He was medically stable when he left.
--- NOTE | 2021-05-05 15:19 | PC.NURSE ---
Charting for Patrickb given 05/01/2021 @1815. Vital signs stable
== END 2021-05-04 13:15 | disposition home or self-care (01) | DRG 191 ==
LOC: CHSED 22:01 → CHS2ND 05-03 07:49
PROVIDERS: Nurse Practitioner; Nurse Practitioner Family; Admitting Provider Emergency Medicine; Emergency Provider Emergency Medicine; PCP Internal Medicine; Visit Provider Emergency Medicine
DX: J44.1 Chronic obstructive pulmonary disease with (acute) exacerbation (principal); I50.22 Chronic systolic (congestive) heart failure; I11.0 Hypertensive heart disease with heart failure; E78.5 Hyperlipidemia, unspecified; F17.210 Nicotine dependence, cigarettes, uncomplicated; F31.9 Bipolar disorder, unspecified
CPT/HCPCS: 36415; 36600; 71045; 80048; 80053; 82375; 82805; 83050; 83880; 84132; 84484; 85025; 85027; 85380; 93005; 94002; 94618; 94640; 99285; A9270; J0456; J0696; J1642; J1650; J2930; J7512

== ENCOUNTER 2021-05-10 08:12 | Outpatient (CLI) | payer MEDICARE, MEDICAID, SELFPAY | END 2021-05-10 08:13 | disposition home or self-care (01) | PROVIDERS: PCP Internal Medicine | DX: A31.0 Pulmonary mycobacterial infection (principal) | CPT/HCPCS: 87015; 87116; 87206 ==

== ENCOUNTER 2021-08-29 10:29 | Outpatient (CLI) | payer MEDICARE, SELFPAY | END 2021-08-29 10:30 | disposition home or self-care (01) | PROVIDERS: PCP Internal Medicine | DX: J44.9 Chronic obstructive pulmonary disease, unspecified (principal) | CPT/HCPCS: 87015; 87116; 87206 ==

== ENCOUNTER 2021-10-13 08:06 | Observation (INO) | payer MEDICARE, MEDICAID, SELFPAY ==
[2021-10-13] VITALS (12 sets, daily range): BP systolic 89–174; BP diastolic 51–83; PULSE 64–94; RESP 16–20; TEMP 36.1–36.8; O2SAT 91–99
--- NOTE | ~2021-10-13 | XR_ITS ---
EXAMINATION: XR chest 1V portable EXAM DATE: 10/13/2021 08:44 INDICATION: Shortness of breath. TECHNIQUE: Portable AP frontal chest x-ray was obtained. Comparison is made to prior examination from 04/30/2021. Correlation made to chest CT from 2019. FINDINGS: The previously seen portacatheter has been removed. There is in right upper lobe airspace d isease, some scattered nodular densities. These could be the same opacities described on CT scan from 11/07/2019. There is left upper lobe nodular density not definitely seen on prior chest x-ray. A foll ow-up nonemergent chest CT should be considered. No evidence of acute airspace disease. No pneumothor ax or pleural effusion. Cardiomediastinal silhouette is normal. There are bony degenerative changes. IMPRESSION: 1. No acute cardiopulmonary findings. 2. Scattered nodular opacities could be postinfectious but cancer not excludable. Follow-up nonemerg ent chest CT without contrast recommended. Reviewed, dictated and finalized at location B. ROASTER HELPER IMPRESSION: 1. No acute cardiopulmonary findings. 2. Scattered nodular opacities could be postinfectious but cancer not excludab le. Follow-up nonemergent chest CT without contrast recommended.
--- NOTE | ~2021-10-13 | CT_ITS ---
EXAMINATION: CT chest abdomen pelvis wo con DATE: 10/13/2021 14:22 INDICATION: Lung cancer and rectal cancer presenting with increasing abdominal pain and shortness of breath TECHNIQUE: Computed tomography (CT) of the chest, abdomen, and pelvis was performed without intraveno us contrast. Automated exposure control and iterative reconstruction technique were employed. The dos e-length product was 413.69 mGy-cm. COMPARISON: Chest CT dated 11/07/2019 FINDINGS: CHEST CT: Severe emphysema. There are several bilateral pulmonary nodules which are unchanged since the prior s tudy, several of which demonstrate central calcification consistent with old granulomatous disease. A few of the prior nodules of decreased in size There are several new nodules including a 1.5 cm nodul e at the left apex on series 4, image 24, a 1.4 cm spiculated nodule in the left upper lobe on image 40, a 6 mm nodule in the right lower lobe on image 73, a 9 mm nodule in the right lower lobe on image 68 and a 1.7 x 1.1 cm nodule at the posterior right upper lobe on image 36. Increase in bandlike opa cities and small nodules with tree-in-bud pattern in the posterior right apex. No pulmonary edema or pleural effusion. Heart size is normal. Atherosclerotic coronary artery calcific location. No pericar dial effusion. Thoracic aorta is normal in caliber. Calcified mediastinal and right hilar lymph nodes consistent with old granulomatous disease. Mild thoracic dextrocurvature with moderate to severe mid thoracic spondylosis. ABDOMEN/PELVIS CT: Liver, decompressed gallbladder, pancreas, bilateral adrenal glands and kidneys are normal. Multiple splenic calcifications consistent with old granulomatous disease. No dilated bowel to suggest obstruc tion. There is mild circumferential wall thickening in the distal sigmoid colon and proximal rectum w ithout a discrete soft tissue nodule.. Bladder is normal. No free intraperitoneal gas or fluid. No pa thologically enlarged abdominal or pelvic lymphadenopathy. There is calcified atherosclerosis of the aorta and many of the other arteries. Severe lumbar spondylosis. L2 bone island. IMPRESSION: 1. Persistent scattered bilateral lung disease with multiple pulmonary nodules some of which remain u nchanged, few of which have improved and several of which are new. This most likely represents evolvi ng chronic infection however malignancy cannot be excluded for any given nodule. Would recommend foll ow-up noncontrast low-dose chest CT in 3 months. 2. Severe emphysema. 3. Mild circumferential wall thickening the distal sigmoid colon and proximal rectum without discrete nodule which could be due to mild focal colitis which could be infectious, inflammatory or ischemic in etiology, malignancy or scarring related to treatment of reported rectal cancer. Reviewed, dictated and finalized at location A. ITATIVE EXECUTIVE RESEARCHER IMPRESSION: 1. Persistent scattered bilateral lung disease with multiple pulmonary nodules some of which remain unchanged, few of which have improved and several of which are new. This most likely represents evolving chronic infection however malign facundo cannot be excluded for any given nodule. Would recommend follow-up noncont rast low-dose chest CT in 3 months. 2. Severe emphysema. 3. Mild circumferential wall thickening the distal sigmoid colon and proximal r ectum without discrete nodule which could be due to mild focal colitis which co uld be infectious, inflammatory or ischemic in etiology, malignancy or scarring related to treatment of reported rectal cancer.
--- NOTE | 2021-10-13 08:12 | ECG_ITS ---
Measurements Intervals [place] Rate: 78 P: 83 [place]: 170 QRS: -80 QRSD: 123 T: 0 QT: 386 QTc: 441 Interpretive Statements SINUS RHYTHM INCOMPLETE LEFT BUNDLE BRANCH BLOCK BORDERLINE R WAVE PROGRESSION, ANTERIOR LEADS MINIMAL Q WAVES- HIGH LATERAL LEADS BORDERLINE T WAVE ABNORMALITY- INFERIOR LEADS BASELINE WANDER- AVL, V4-V5 ABNORMAL ECG Electronically Signed On 10-13-2021 8:44:08 TRAINING AND DEVELOPMENT ASSISTANT by Kevin Cervantes D.O.
[2021-10-13 08:40] LABS: Base Excess ABG 8.4 mmol/L (0-2); Basophils Absolute Auto 0.03 K/mm3 (0.00-0.10); Basophils Percent Auto 0.5 % (0.0-1.0); Eosinophils Percent Auto 1.7 % (1.0-6.0); HCO3 ABG 36.9 mmol/L (23-29); Hematocrit 44.6 % (37.0-46.0); Hemoglobin 14.6 g/dL (12.4-15.3); Immature Granulocyte Absolute 0.02 K/mm3 (0.00-0.00); Immature Granulocyte Percent A 0.3 % (0.0-0.0); Lymphocytes Absolute Auto 0.43 K/mm3 (1.10-4.50); Lymphocytes Percent Auto 7.1 % (18.0-42.0); Mean Corpuscular HGB Conc 32.7 g/dL (32.0-36.0); Mean Corpuscular Hemoglobin 32.6 pg (27.0-31.0); Mean Corpuscular Volume 99.6 fL (78.0-102.0); Mean Platelet Volume 9.6 fl (8.7-11.0); Monocytes Absolute Auto 0.72 K/mm3 (0.10-0.90); Monocytes Percent Auto 11.9 % (2.0-11.0); Neutrophils Absolute Auto 4.7 K/mm3 (1.7-7.2); Neutrophils Percent Auto 78.5 % (50.0-70.0); Oxygen Content ABG 16.1 %vol (16.0-22.0); Oxygen Saturation ABG 89.4 % (95-97); Oxyhemoglobin 79.5 % (94-100); PCO2 ABG 68.8 mmHg (35-45); PO2 ABG 52.4 mmHg (75-85); Platelet Count Result 208 K/mm3 (150-420); Red Blood Count 4.48 M/mm3 (4.70-6.10); Red Cell Distribution Width 15.1 % (11.6-14.4); Total Hemoglobin 14.4 g/dL (12.0-18.0); pH ABG 7.35 (7.35-7.45)
[2021-10-13 08:42] LABS: Device ROOM AIR; Modified Allen's Test Pass; Site Drawn LEFT RADIAL
[2021-10-13 08:55] LABS: INR 1.1; Partial Thromboplastin Time 27.8 SEC (23.90-30.70); Prothrombin Time 11.4 Seconds (9.50-12.10)
[2021-10-13 09:01] LABS: Lactic Acid Reflex 0.7 mmol/L (0.4-2.0)
[2021-10-13] MEDS: SODIUM CHLORIDE 0.9% IV 1,000 ML 999 ML IV CONT (09:05)
[2021-10-13 09:06] LABS: Alanine Aminotransferase 21 U/L (16-63); Albumin Level 3.4 g/dL (3.4-5.0); Alkaline Phosphatase 97 U/L (46-116); Anion Gap 3 mmol/L (8-16); Aspartate Amino Transferase 13 U/L (15-37); Bilirubin,Total 0.6 mg/dL (0.00-1.00); Blood Urea Nitrogen 16 mg/dL (7-18); Calcium 8.8 mg/dL (8.5-10.1); Carbon Dioxide 36 mmol/L (21-32); Chloride 94 mmol/L (98-108); Estimated Glomerular Filt Rate > 60; Glucose 109 mg/dL (70-99); Osmolality Calculated 278 mOsm/kg (285-295); Potassium 4.4 mmol/L (3.5-5.1); Sodium 133 mmol/L (136-145); Total Protein 6.5 g/dL (6.4-8.2)
[2021-10-13 09:09] LABS: NT Pro B Type Natriuretic Pept 4980 pg/mL (0-125); Troponin I 104.8 ng/L (0.00-60.4)
[2021-10-13 09:09] LABS: CRP < 0.2 mg/dL (0.0-0.9)
[2021-10-13] MEDS: methylPREDNISolone SOD SUCC 125 MG VIAL IV PUSH (09:10)
--- NOTE | 2021-10-13 09:20 | ED.SOB ---
HPI - SOB/Dyspnea General Chief Complaint: Shortness of Breath/Dyspnea Stated Complaint: AMBULANCE Source: patient and EMS Mode of arrival: EMS Limitations: no limitations History of Present Illness HPI Narrative: this is a 71-year-old gentleman from [facility] facility that presents via EMS with increasing shortness of breath does have a history of lung cancer and COPD with bipolar disorder, patient facility called because the patient was hypoxic he was O2 sats of 84% on room air, EMS arrived started him on 4L and his O2 sats at that time were 98%. The patient complains of shortness of breath with nonproductive cough with no chest pain no chest pressure no abdominal pain no fever chills. MD elicited complaint: shortness of breath and cough Pertinent past history: COPD, congestive heart failure and other ( Lung cancer) Onset (ago): hour(s) Timing: constant Severity: moderate Exacerbating factors: nothing Known history of: COPD Related Data Home Medications Medication Instructions Recorded Confirmed acetaminophen 500 mg capsule 500 mg PO Q6H 10/17/19 10/13/21 aspirin 81 mg tablet,delayed 81 mg PO DAILY 10/17/19 10/13/21 release atorvastatin 10 mg tablet 10 mg PO DAILY 10/17/19 10/13/21 carvedilol 12.5 mg tablet 12.5 mg PO BID tablet 10/17/19 10/13/21 cyclobenzaprine 10 mg tablet 10 mg PO TID PRN 10/17/19 10/13/21 diclofenac sodium 75 mg 75 mg PO BID 10/17/19 10/13/21 tablet,delayed release diphenhydramine HCl 50 mg capsule 50 mg PO Q6H PRN 10/17/19 10/13/21 fluticasone propionate 50 1 spray NASAL DAILY 10/17/19 10/13/21 mcg/actuation nasal spray,suspension folic acid 1 mg tablet 1 mg PO DAILY 10/17/19 10/13/21 lisinopril 20 mg tablet 20 mg PO BID 10/17/19 10/13/21 risperidone 2 mg tablet 2 mg PO BID 10/17/19 10/13/21 sumatriptan succinate 100 mg tablet 100 mg PO ONCE 10/17/19 10/13/21 famotidine 20 mg tablet 20 mg PO BID tablet 10/20/19 10/13/21 topiramate 25 mg capsule,extended 25 mg PO BID cap 04/19/20 10/13/21 release 24 hr verapamil 80 mg tablet 80 mg PO BID tablet 04/19/20 10/13/21 Trelegy Ellipta 1 inh INHALATION DAILY 07/29/20 10/13/21 albuterol sulfate [ProAir HFA] 2 puff INHALATION QID 07/29/20 10/13/21 azithromycin 250 mg PO DAILY 07/29/20 10/13/21 ferrous sulfate 325 mg PO DAILY 07/29/20 10/13/21 loperamide 2 mg PO PRN PRN 07/29/20 10/13/21 ondansetron HCl 8 mg PO DAILY PRN 07/29/20 10/13/21 prochlorperazine maleate 10 mg PO Q6-8H PRN 07/29/20 10/13/21 ethambutol 400 mg PO DAILY 10/11/20 10/13/21 rifampin 600 mg PO DAILY 10/11/20 10/13/21 Allergies Allergy/AdvReac Type Severity Reaction Status Date / Time Sulfa (Sulfonamide Allergy Rash Verified 07/16/20 01:03 Antibiotics) Review of Systems Review of Systems: All systems reviewed & are unremarkable except as noted in HPI and below PMFSH Past Medical History Medical History Bipolar 2 disorder Body mass index [BMI] 20.0-20.9, adult (03/17/19) Chronic obstructive pulmonary disease, unspecified Chronic systolic heart failure [place] (dyspnea on exertion) Dyslipidemia Essential hypertension Smoking Unspecified systolic (congestive) heart failure Family History Family History Other Family history non-contributory Social History Social History Smoking packs per day: 0.5 Smoking cigarettes per day: 10.0 Years smoked: 50 Smoking pack-years: 25.00 Smoking status: Current every day smoker Tobacco type: cigarettes Alcohol intake: unknown Drinks per week: 0 Substance use: unknown Gender identity (if verbalized by the patient): Male Spiritual care concerns: No Agree to blood products: Yes Exam Const: General: no acute distress and alert Orientation/consciousness: patient oriented x3 HENMT: Head: normal to inspection Eyes: Conjunctivae: conj
[2021-10-13 09:28] LABS: SARS-CoV-2 RNA PCR Negative (Negative)
--- NOTE | 2021-10-13 10:42 | PM.IMHP ---
H&P: HPI History of Present Illness Date/Time: 10/13/21 10:42 Lui Goodwin is a 71 year old male who comes to the hospital for CHF Exacerbation, COPD Exacerbation, Elevated Troponin, and Abdominal Pain. Pt states that his SOB started about a week ago or more and his Abdominal pain started a couple days ago. Pt's med list includes Azithromycin, Ethambutol, and Rifampin. I will be contacting his Cooler Tender. Pt states he has been taking his inhalers as they are prescribed. He does not use home oxygen. For his abdominal pain it is generalized. He denies any changes in stools form or color, hematochezia. He does admit to decreased appetite over the last couple weeks. Has a Hx of rectal and lung CA diagnosed 15 years ago. Pt denies fevers, chills, N/V, falls. Chief Complaint: Shortness of breath, CHF, COPD Review of Systems Constitutional: Constitutional: Denies body ache(s), Denies chills, Denies fever(s), Denies headache(s) and Reports weakness Cardiovascular: Cardiovascular: Denies chest pain and Denies chest pain at rest Respiratory: Respiratory: Denies cough, Reports dyspnea and Reports dyspnea on exertion Gastrointestinal: Gastrointestinal: Reports abdominal pain (Generalized), Denies change in bowel habits, Denies change in stool character, Denies constipation, Denies fecal incontinence, Denies diarrhea, Denies nausea and Denies vomiting Genitourinary: Genitourinary: Reports no additional male genitourinary complaints Musculoskeletal: Musculoskeletal: Reports no additional musculoskeletal complaints Neurologic: Reports system reviewed and no additional complaints, except as documented, Denies dizziness and Denies syncope [facility] Past Medical History Medical History Bipolar 2 disorder Body mass index [BMI] 20.0-20.9, adult (03/17/19) Chronic obstructive pulmonary disease, unspecified Chronic systolic heart failure [place] (dyspnea on exertion) Dyslipidemia Essential hypertension Rectal cancer Smoking Unspecified systolic (congestive) heart failure Family History Family History Other Family history non-contributory Social History Social History Smoking packs per day: 2 Smoking cigarettes per day: 40.0 Years smoked: 50 Smoking pack-years: 100.00 Smoking status: Current every day smoker Tobacco type: cigarettes Second hand tobacco smoke exposure: No Alcohol intake: unknown Drinks per week: 0 Substance use: unknown Gender identity (if verbalized by the patient): Male Sexual Orientation (if Verbalized by the Patient): Straight or Heterosexual Spiritual care concerns: No Agree to blood products: Yes Meds Home Medications and Allergies Home Medications Medication Instructions Recorded Confirmed Type acetaminophen 500 mg capsule 500 mg PO Q6H 10/17/19 10/13/21 History aspirin 81 mg tablet,delayed 81 mg PO DAILY 10/17/19 10/13/21 History release atorvastatin 10 mg tablet 10 mg PO DAILY 10/17/19 10/13/21 History carvedilol 12.5 mg tablet 12.5 mg PO BID tablet 10/17/19 10/13/21 History cyclobenzaprine 10 mg tablet 10 mg PO TID PRN 10/17/19 10/13/21 History diclofenac sodium 75 mg 75 mg PO BID 10/17/19 10/13/21 History tablet,delayed release diphenhydramine HCl 50 mg capsule 50 mg PO Q6H PRN 10/17/19 10/13/21 History fluticasone propionate 50 1 spray NASAL DAILY 10/17/19 10/13/21 History mcg/actuation nasal spray,suspension folic acid 1 mg tablet 1 mg PO DAILY 10/17/19 10/13/21 History lisinopril 20 mg tablet 20 mg PO BID 10/17/19 10/13/21 History risperidone 2 mg tablet 2 mg PO BID 10/17/19 10/13/21 History sumatriptan succinate 100 mg tablet 100 mg PO ONCE 10/17/19 10/13/21 History famotidine 20 mg tablet 20 mg PO BID tablet 10/20/19 10/13/21 History potassium chloride 10 meq PO DAILY #30 tablet 11/09/19 10/13/21 Rx leann
[2021-10-13] MEDS: IPRATROPIUM 0.5 MG/ALBUTEROL SULFATE 2.5 MG AMPUL.NEB 3 ML INHALATION ×2 (11:29→18:10)
[2021-10-13] MEDS: methylPREDNISolone SOD SUCC 40 MG VIAL IV PUSH ×2 (11:31→18:01)
[2021-10-13 14:04] LABS: Troponin I 64.7 ng/L (0.00-60.4)
--- NOTE | 2021-10-13 15:35 | PC.NURSE ---
Pt admitted from the ER for SOB, and stomach pain. VS stable, 18G in RW.
[2021-10-13] MEDS: FAMOTIDINE 20 MG TABLET PO (16:35)
[2021-10-13 18:15] LABS: Troponin I 50.3 ng/L (0.00-60.4)
[2021-10-13] MEDS: CEFDINIR 300 MG CAPSULE PO (21:14)
[2021-10-13] MEDS: risperiDONE 1 MG TABLET 2 MG PO (21:14)
[2021-10-13] MEDS: TOPIRAMATE 25 MG TABLET 50 MG PO (21:15)
[2021-10-13] MEDS: lisinopriL 20 MG TABLET PO (21:15)
[2021-10-13] MEDS: VERAPAMIL HCL 80 MG TABLET PO (21:16)
[2021-10-14] VITALS (14 sets, daily range): BP systolic 128–181; BP diastolic 60–84; PULSE 56–92; RESP 14–20; TEMP 36.3–36.8; O2SAT 92–98
--- NOTE | 2021-10-14 00:15 | PC.NURSE ---
Pt given methylprdnisolone 40 mg IVP as ordered. Pt was also given a duoneb treatment which he tolerated well.
[2021-10-14] MEDS: methylPREDNISolone SOD SUCC 40 MG VIAL IV PUSH ×4 (00:18→18:10)
[2021-10-14] MEDS: IPRATROPIUM 0.5 MG/ALBUTEROL SULFATE 2.5 MG AMPUL.NEB 3 ML INHALATION ×4 (00:19→17:38)
--- NOTE | 2021-10-14 02:00 | PC.NURSE ---
Pt dozing quietly on his side; No signs of discomfort noted.
[2021-10-14 02:45] LABS: Hematocrit 41.3 % (37.0-46.0); Hemoglobin 13.6 g/dL (12.4-15.3); Immature Granulocyte Absolute 0.01 K/mm3 (0.00-0.00); Immature Granulocyte Percent A 0.2 % (0.0-0.0); Lymphocytes Absolute Auto 0.39 K/mm3 (1.10-4.50); Lymphocytes Percent Auto 8.4 % (18.0-42.0); Mean Corpuscular HGB Conc 32.9 g/dL (32.0-36.0); Mean Corpuscular Hemoglobin 32.4 pg (27.0-31.0); Mean Corpuscular Volume 98.3 fL (78.0-102.0); Mean Platelet Volume 9.8 fl (8.7-11.0); Monocytes Absolute Auto 0.46 K/mm3 (0.10-0.90); Monocytes Percent Auto 9.9 % (2.0-11.0); Neutrophils Absolute Auto 3.8 K/mm3 (1.7-7.2); Neutrophils Percent Auto 81.5 % (50.0-70.0); Platelet Count Result 220 K/mm3 (150-420); Red Cell Distribution Width 15.1 % (11.6-14.4); White Blood Count 4.7 K/mm3 (4.8-10.8)
[2021-10-14 03:14] LABS: Alanine Aminotransferase 19 U/L (16-63); Albumin Level 3.1 g/dL (3.4-5.0); Alkaline Phosphatase 82 U/L (46-116); Anion Gap 4 mmol/L (8-16); Aspartate Amino Transferase 10 U/L (15-37); Bilirubin,Total 0.5 mg/dL (0.00-1.00); Blood Urea Nitrogen 13 mg/dL (7-18); Calcium 8.7 mg/dL (8.5-10.1); Carbon Dioxide 34 mmol/L (21-32); Chloride 94 mmol/L (98-108); Estimated CRCL calculation 63 ml/min; Estimated Glomerular Filt Rate > 60; Glucose 135 mg/dL (70-99); NT Pro B Type Natriuretic Pept 6391 pg/mL (0-125); Osmolality Calculated 276 mOsm/kg (285-295); Potassium 3.8 mmol/L (3.5-5.1); Sodium 132 mmol/L (136-145); Total Protein 5.9 g/dL (6.4-8.2)
--- NOTE | 2021-10-14 04:03 | PC.NURSE ---
Pt resting in bed and watching TV. Vital signs taken and pt doesnt voice any c/o discomfort. No signs of respiratory distress noted.
--- NOTE | 2021-10-14 06:30 | PC.NURSE ---
Pt given methylprednisolone 40 mg IVP as ordered.
--- NOTE | 2021-10-14 08:22 | PM.IMPN ---
Progress Note: A&P Assessment and Plan (1) CHF exacerbation: Qualifiers: Heart failure type: systolic Qualified Code(s): I50.23 - Acute on chronic systolic (congestive) heart failure Code(s): I50.9 - Heart failure, unspecified Status: Acute Assessment and Plan: I&O, Daily Weight, Lasix 40 mg daily, monitoring fluids for overload while monitoring renal function, and treating COPD 10/14/2021 Continue with above for another night, likely DC in AM (2) Elevated troponin: Code(s): R77.8 - Other specified abnormalities of plasma proteins Status: Acute Assessment and Plan: First two troponin series were 104.8, 64.7 trending down, EKG SR w/ Incomplete LBBB, No active chest pain 10/14/2021 Troponin today 50.3, no chest pain (3) COPD exacerbation: Code(s): J44.1 - Chronic obstructive pulmonary disease with (acute) exacerbation Status: Acute Assessment and Plan: DuoNeb, Solu-Medrol 40 mg Q6H, Azithromycin, and ER continued Cefdinir, not requiring supplemental oxygen at this time. 10/14/2021 Continue above for another night, likely DC in AM (4) Abdominal pain: Code(s): R10.9 - Unspecified abdominal pain Status: Acute Assessment and Plan: Pt has a history of Rectal and Lung CA, Obtaining CT Lung,Abd/Pel, waiting for rad report, pain is generalized, Zofran PRN, Compazine PRN 10/14/2021 Resolved (5) Dyslipidemia: Code(s): E78.5 - Hyperlipidemia, unspecified Status: Acute Assessment and Plan: Continue Pepcid (6) Essential hypertension: Code(s): I10 - Essential (primary) hypertension Status: Acute Assessment and Plan: Continue Lisinopril, Verapamil, monitor VS, make adjustments to medication as needed. 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 06/11/20 CT guided biopsy of lung nodule: no malignancy but was organizeing fibrosis with multiple non-caseating granulomas. LENNY treatment initiated on 07/28/20 with Azithromycin, Rifampin, and Ethambutol. Will continue triple Ab Tx. Subjective Date/time seen: 10/14/21 08:22 Pt states he is feeling better an ready to return home. Will treat another day prior to discharge. Lung sounds improving. Pt has no complaints of CP, fevers, chills, abdominal pain, SOB at rest. Review of Systems Review of Systems: All systems reviewed & are unremarkable except as noted in HPI and below Exam Const: General: cooperative, comfortable, no acute distress, well developed, alert, awake and Physically active Nutritional Appearance: underweight Resp: Effort & Inspection: normal respiratory effort Auscultation: rhonchi (scattered) Cardio: Rate: regular rate Heart sounds: S1 normal heart sound present and S2 normal heart sound present Skin: General skin exam: normal color and dry skin Neuro: General: oriented to person, oriented to place, oriented to time, moves all extremities and no focal motor deficits Cranial nerves: Yes CN's II-XII intact bilaterally (grossly intact) Cognition (Neuro): normal cognition Speech: normal speech Extrem: General: no pedal edema and no calf tenderness Psych: Appearance: grossly normal Mental Status: mental status grossly normal Speech and movement: Normal speech and movement present Affect: normal affect Attitude: cooperative Thought process: Normal thought process present Objective Data Vital Signs Vital Signs: Vital Signs - 24 hr 10/13/21 08:35 10/13/21 09:00 10/13/21 09:24 Temperature 97.8 F 97 F L Pulse Rate
[2021-10-14] MEDS: FLUTICASONE PROPIONATE 0.05% NA SPR 16 GM BTL (*BKC) 1 SPRAY NASAL (09:00)
[2021-10-14] MEDS: ETHAMBUTOL HCL 400 MG TABLET 800 MG PO (09:30)
[2021-10-14] MEDS: rifAMPin 300 MG CAPSULE 600 MG PO (09:30)
[2021-10-14] MEDS: ATORVASTATIN 10 MG TABLET PO (09:31)
[2021-10-14] MEDS: AZITHROMYCIN 250 MG TABLET PO (09:31)
[2021-10-14] MEDS: TOPIRAMATE 25 MG TABLET 50 MG PO ×2 (09:31→22:19)
[2021-10-14] MEDS: ASPIRIN 81 MG ENTERIC TABLET PO (09:31)
[2021-10-14] MEDS: risperiDONE 1 MG TABLET 2 MG PO ×2 (09:32→22:18)
[2021-10-14] MEDS: CEFDINIR 300 MG CAPSULE PO ×2 (09:32→22:18)
[2021-10-14] MEDS: FOLIC ACID 1 MG TABLET PO (09:32)
[2021-10-14] MEDS: lisinopriL 20 MG TABLET PO ×2 (09:32→22:18)
[2021-10-14] MEDS: FAMOTIDINE 20 MG TABLET PO ×2 (09:32→17:00)
[2021-10-14] MEDS: VERAPAMIL HCL 80 MG TABLET PO ×2 (09:33→22:22)
[2021-10-14] MEDS: FERROUS SULFATE 324 MG TABLET PO (09:33)
[2021-10-14] MEDS: FUROSEMIDE INJ 40 MG/4 ML VIAL IV PUSH ×2 (09:34→17:00)
[2021-10-14] MEDS: SODIUM CHLORIDE 1 GM TABLET PO (12:28)
[2021-10-14] MEDS: SODIUM CHLORIDE 500 MG TABLET PO (17:00)
--- NOTE | 2021-10-14 19:53 | PC.NURSE ---
1600 Patient dressed self and was entering the elevator. Nurse stopped patient and redirected him to his room. Patient spoke with hospitalist about going home. Hospitalist explained that he wanted him to stay for the night and could be discharged tomorrow.
[2021-10-15] VITALS (9 sets, daily range): BP systolic 128–166; BP diastolic 70–95; PULSE 72–95; RESP 16–22; TEMP 36.4–36.8; O2SAT 91–100
[2021-10-15] MEDS: IPRATROPIUM 0.5 MG/ALBUTEROL SULFATE 2.5 MG AMPUL.NEB 3 ML INHALATION ×3 (01:10→13:49)
[2021-10-15] MEDS: methylPREDNISolone SOD SUCC 40 MG VIAL IV PUSH ×4 (01:36→17:18)
[2021-10-15 06:19] LABS: Hematocrit 42.4 % (37.0-46.0); Hemoglobin 14.4 g/dL (12.4-15.3); Mean Corpuscular Hemoglobin 32.9 pg (27.0-31.0); Mean Corpuscular Volume 96.8 fL (78.0-102.0); Mean Platelet Volume 10.2 fl (8.7-11.0); Platelet Count Result 212 K/mm3 (150-420); Red Blood Count 4.38 M/mm3 (4.70-6.10); Red Cell Distribution Width 14.9 % (11.6-14.4); White Blood Count 4.9 K/mm3 (4.8-10.8)
[2021-10-15 06:43] LABS: Anion Gap 7 mmol/L (8-16); Blood Urea Nitrogen 13 mg/dL (7-18); Calcium 8.7 mg/dL (8.5-10.1); Carbon Dioxide 31 mmol/L (21-32); Chloride 92 mmol/L (98-108); Estimated CRCL calculation 57 ml/min; Estimated Glomerular Filt Rate > 60; Glucose 147 mg/dL (70-99); Osmolality Calculated 273 mOsm/kg (285-295); Potassium 3.6 mmol/L (3.5-5.1); Sodium 130 mmol/L (136-145)
--- NOTE | 2021-10-15 07:51 | PM.DS ---
DS: Admitting Diagnosis Discharge Date 10/15/2021 <OMID Liu - Last Filed: 10/15/21 11:54> Admitting Diagnosis Rt LE Ulceration, A fib w/ RVR, CHF <OMID Liu - Last Filed: 10/15/21 11:54> DS: Discharge Diagnosis Discharge Diagnosis (1) CHF exacerbation: Qualifiers: Heart failure type: systolic Qualified Code(s): I50.23 - Acute on chronic systolic (congestive) heart failure <OMID Liu - Last Filed: 10/15/21 11:54> Code(s): I50.9 - Heart failure, unspecified <OMID Liu - Last Filed: 10/15/21 11:54> Status: Acute <OMID Liu - Last Filed: 10/15/21 11:54> Assessment and Plan: I&O, Daily Weight, Lasix 40 mg daily, monitoring fluids for overload while monitoring renal function, and treating COPD 10/14/2021 Continue with above for another night, likely DC in AM 10/15/2021 Will DC home with Spironolactone and DC Lasix / Potassium <OMID Liu - Last Filed: 10/15/21 11:54> (2) Elevated troponin: Code(s): R77.8 - Other specified abnormalities of plasma proteins <OMID Liu - Last Filed: 10/15/21 11:54> Status: Acute <OMID Liu - Last Filed: 10/15/21 11:54> Assessment and Plan: First two troponin series were 104.8, 64.7 trending down, EKG SR w/ Incomplete LBBB, No active chest pain 10/14/2021 Troponin today 50.3, no chest pain <OMID Liu - Last Filed: 10/15/21 11:54> (3) COPD exacerbation: Code(s): J44.1 - Chronic obstructive pulmonary disease with (acute) exacerbation <OMID Liu - Last Filed: 10/15/21 11:54> Status: Acute <Stas Jacques, CORRECTIONAL THERAPY DIRECTOR-C - Last Filed: 10/15/21 11:54> Assessment and Plan: DuoNeb, Solu-Medrol 40 mg Q6H, Azithromycin, and ER continued Cefdinir, not requiring supplemental oxygen at this time. 10/14/2021 Continue above for another night, likely DC in AM 10/15/2021 Will DC home with Albuterol for Pt to continue at home along with Azithromycin to finish course <Stas Parker OMID Jacques - Last Filed: 10/15/21 11:54> (4) Abdominal pain: Code(s): R10.9 - Unspecified abdominal pain <Stas Parker OMID Jacques - Last Filed: 10/15/21 11:54> Status: Acute <Stas HernandezOMID escobar - Last Filed: 10/15/21 11:54> Assessment and Plan: Pt has a history of Rectal and Lung CA, Obtaining CT Lung,Abd/Pel, waiting for rad report, pain is generalized, Zofran PRN, Compazine PRN 10/14/2021 Resolved <Stas Parker OMID Jacques - Last Filed: 10/15/21 11:54> (5) Dyslipidemia: Code(s): E78.5 - Hyperlipidemia, unspecified <Stas HernandezOMID escobar - Last Filed: 10/15/21 11:54> Status: Acute <Stas Parker OMID Jacques - Last Filed: 10/15/21 11:54> Assessment and Plan: Continue Pepcid <Stas Parker OMID Jacques - Last Filed: 10/15/21 11:54> (6) Essential hypertension: Code(s): I10 - Essential (primary) hypertension <Stas Parker OMID Jacques - Last Filed: 10/15/21 11:54> Status: Acute <Stas Parker OMID Jacques - Last Filed: 10/15/21 11:54> Assessment and Plan: Continue Lisinopril, Verapamil, monitor VS, make adjustments to medication as needed. 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
[2021-10-15] MEDS: FAMOTIDINE 20 MG TABLET PO ×2 (09:57→17:18)
[2021-10-15] MEDS: risperiDONE 1 MG TABLET 2 MG PO (09:59)
[2021-10-15] MEDS: FOLIC ACID 1 MG TABLET PO (09:59)
[2021-10-15] MEDS: ATORVASTATIN 10 MG TABLET PO (09:59)
[2021-10-15] MEDS: AZITHROMYCIN 250 MG TABLET PO (10:00)
[2021-10-15] MEDS: FERROUS SULFATE 324 MG TABLET PO (10:00)
[2021-10-15] MEDS: TOPIRAMATE 25 MG TABLET 50 MG PO (10:01)
[2021-10-15] MEDS: lisinopriL 20 MG TABLET PO (10:01)
[2021-10-15] MEDS: CEFDINIR 300 MG CAPSULE PO (10:02)
[2021-10-15] MEDS: ETHAMBUTOL HCL 400 MG TABLET 800 MG PO (10:03)
[2021-10-15] MEDS: ASPIRIN 81 MG ENTERIC TABLET PO (10:04)
[2021-10-15] MEDS: FUROSEMIDE INJ 40 MG/4 ML VIAL IV PUSH ×2 (10:06→17:18)
[2021-10-15] MEDS: rifAMPin 300 MG CAPSULE 600 MG PO (10:07)
[2021-10-15] MEDS: VERAPAMIL HCL 80 MG TABLET PO (10:07)
[2021-10-15] MEDS: SODIUM CHLORIDE 500 MG TABLET PO ×2 (10:07→17:18)
[2021-10-15] MEDS: FLUTICASONE PROPIONATE 0.05% NA SPR 16 GM BTL (*BKC) 1 SPRAY NASAL (10:08)
--- NOTE | 2021-10-15 18:07 | PC.NURSE ---
Patient discharged from floor at 1750. Accompanied to private vehicle by nurse via w/c. Personal belongings sent with patient. Patient returned to half-way care via private vehicle. Discharge instructions given to patient. Patient voices understanding.
== END 2021-10-15 17:50 | disposition other institution (70) ==
LOC: CHSED 09:34 → CHS2ND 09:52
PROVIDERS: Nurse Practitioner Family; Admitting Provider Emergency Medicine; Emergency Provider Emergency Medicine; PCP Internal Medicine; Visit Provider Emergency Medicine
DX: I11.0 Hypertensive heart disease with heart failure (principal); I50.23 Acute on chronic systolic (congestive) heart failure; J44.1 Chronic obstructive pulmonary disease with (acute) exacerbation; A31.0 Pulmonary mycobacterial infection; E78.5 Hyperlipidemia, unspecified; R77.8 Other specified abnormalities of plasma proteins; F17.210 Nicotine dependence, cigarettes, uncomplicated; F31.9 Bipolar disorder, unspecified; Z20.822 Contact with and (suspected) exposure to COVID-19; Z85.048 Personal history of other malignant neoplasm of rectum, rectosigmoid junction, and anus
CPT/HCPCS: 36415; 36600; 71045; 71250; 74176; 80048; 80053; 82805; 83605; 83735; 83880; 84484; 85025; 85027; 85610; 85730; 86140; 87040; 93005; 94640; 96361; 96374; 96375; 96376; 99285; A9270; C9803; G0378; J1940; J2920; J2930; J7030; U0003; U0005

== ENCOUNTER 2021-11-07 14:28 | Outpatient (CLI) | payer MEDICARE, MEDICAID, SELFPAY | END 2021-11-07 14:29 | disposition home or self-care (01) | LOC: CHSLAB 14:32 | PROVIDERS: PCP Internal Medicine | DX: R91.8 Other nonspecific abnormal finding of lung field (principal); A31.0 Pulmonary mycobacterial infection | CPT/HCPCS: 87015; 87116; 87206 ==

== ENCOUNTER 2021-12-07 12:17 | Emergency (ER) | payer MEDICARE, MEDICAID, SELFPAY ==
[2021-12-07] VITALS (7 sets, daily range): BP systolic 146–186; BP diastolic 69–78; PULSE 56–64; RESP 20–22; TEMP 36.3–36.6; O2SAT 92–100
--- NOTE | ~2021-12-07 | XR_ITS ---
EXAMINATION: XR chest 1V portable DATE: 12/07/2021 13:35 INDICATION: Shortness of breath. Chronic obstructive pulmonary disease. TECHNIQUE: A single frontal view of the chest was obtained. COMPARISON: Chest single view 10/13/2021, chest CT 10/13/2021, 11/07/2019 FINDINGS: There are lucencies in the lungs, consistent with emphysema. There are scattered nodules in the lungs with an upper lung predominance. No pleural effusion or pneumothorax. The heart size is no rmal. There is an old healed fracture of left clavicle. There are old healed left rib fractures. IMPRESSION: 1. Scattered nodules again seen in the lungs with an upper lung predominance, likely at least predomi nantly chronic infection. Malignancy cannot be excluded for some of the nodules. Given the timing of previous CTs, noncontrast low-dose chest CT is recommended in one month. 2. Emphysema. Reviewed, dictated and finalized at location A. IMPRESSION: 1. Scattered nodules again seen in the lungs with an upper lung predominance, l ikely at least predominantly chronic infection. Malignancy cannot be excluded f or some of the nodules. Given the timing of previous CTs, noncontrast low-dose chest CT is recommended in one month. 2. Emphysema.
--- NOTE | 2021-12-07 12:43 | ED.SOB ---
HPI - SOB/Dyspnea General Chief Complaint: Shortness of Breath/Dyspnea Stated Complaint: feet swollen/possible fluid retention Time Seen by Provider: 12/07/21 12:52 Source: patient Mode of arrival: ambulatory History of Present Illness HPI Narrative: 71-year-old male smoker assisted living resident with hypertension diastolic CHF, COPD/emphysema, pulmonary nodules, mycobacterium avium intracellulara, bipolar disorder dyslipidemia, rectal cancer 15 years ago, presents to the ER with -- worsening shortness of breath for the past few days. -- worsening leg swelling. This started after he had his left foot toenail removal. -- Urinary incontinence which is new for which prompted him to come to the ER -- profound weakness. He denied chest pain. He denied fever service. Pt had ef of 36% which improved with medical management to normal EF. MD elicited complaint: shortness of breath and cough Pertinent past history: COPD and congestive heart failure Onset (ago): day(s) ( Started 3-4 days ago.) Exacerbating factors: exertion Relieving factors: rest Known history of: COPD and congestive heart failure Associated symptoms: cough and sputum production Treatment prior to arrival: none Related Data Home oxygen amount: none Home Medications Medication Instructions Recorded Confirmed acetaminophen 500 mg capsule 500 mg PO Q6H PRN 10/17/19 12/07/21 aspirin 81 mg tablet,delayed 81 mg PO DAILY 10/17/19 12/07/21 release atorvastatin 10 mg tablet 10 mg PO DAILY 10/17/19 12/07/21 carvedilol 12.5 mg tablet 12.5 mg PO BID tablet 10/17/19 12/07/21 cyclobenzaprine 10 mg tablet 10 mg PO TID PRN 10/17/19 12/07/21 diclofenac sodium 75 mg 75 mg PO BID 10/17/19 12/07/21 tablet,delayed release diphenhydramine HCl 50 mg capsule 50 mg PO Q6H PRN 10/17/19 12/07/21 fluticasone propionate 50 1 spray NASAL DAILY 10/17/19 12/07/21 mcg/actuation nasal spray,suspension folic acid 1 mg tablet 1 mg PO DAILY 10/17/19 12/07/21 lisinopril 20 mg tablet 20 mg PO BID 10/17/19 12/07/21 risperidone 2 mg tablet 2 mg PO BID 10/17/19 12/07/21 sumatriptan succinate 100 mg tablet 100 mg PO ONCE PRN 10/17/19 12/07/21 famotidine 20 mg tablet 20 mg PO BID tablet 10/20/19 12/07/21 verapamil 80 mg tablet 80 mg PO BID tablet 04/19/20 12/07/21 Trelegy Ellipta 1 inh INHALATION DAILY 07/29/20 12/07/21 azithromycin 250 mg PO DAILY 07/29/20 12/07/21 ferrous sulfate 325 mg PO DAILY 07/29/20 12/07/21 loperamide 2 mg PO PRN PRN 07/29/20 12/07/21 ondansetron HCl 8 mg PO DAILY PRN 07/29/20 12/07/21 prochlorperazine maleate 10 mg PO Q6-8H PRN 07/29/20 12/07/21 ethambutol 1,000 mg PO DAILY 10/11/20 12/07/21 rifampin 600 mg PO DAILY 10/11/20 12/07/21 topiramate 50 mg PO BID 10/13/21 12/07/21 capecitabine 1,500 mg PO BID 12/07/21 12/07/21 capecitabine 150 mg PO BID 12/07/21 12/07/21 divalproex 125 mg PO BID 12/07/21 12/07/21 potassium chloride 10 meq PO DAILY 12/07/21 12/07/21 Allergies Allergy/AdvReac Type Severity Reaction Status Date / Time Sulfa (Sulfonamide Allergy Rash Verified 07/16/20 01:03 Antibiotics) Review of Systems Review of Systems: All systems reviewed & are unremarkable except as noted in HPI and below Constitutional: Constitutional: Reports as per HPI, Reports no additional constitutional complaints and Reports weakness Eyes: Eyes: Reports as per HPI and Reports no additional eye complaints ENT: Reports system reviewed and no additional complaints, except as documented and Reports as per HPI Cardiovascular: Cardiovascular: Reports as per HPI and Reports no additional cardiovascular complaints Respiratory: Respiratory: Reports chest congestion, Reports cough and Reports dyspnea Gastrointestinal: Gastrointestinal: Reports as per HPI and Reports no additional gastrointestinal complaints Genitourinary: Genitourinary: Reports urinary incontinence Comments: New urinary incontinence Musculoskeletal: Musculoskeletal: Reports no additional musculoskelet
--- NOTE | 2021-12-07 12:59 | ECG_ITS ---
Measurements Intervals [place] Rate: 56 P: 74 ND: 168 QRS: -44 QRSD: 132 T: -71 QT: 454 QTc: 439 Interpretive Statements SINUS BRADYCARDIA LEFT AXIS DEVIATION [QRS AXIS < -30] INTRAVENTRICULAR CONDUCTION DELAY [130+ ms QRS DURATION] LEFT VENTRICULAR HYPERTROPHY AND ST-T CHANGE [VOLTAGE CRITERIA PLUS ST/T ABNORMALITY] POSSIBLE OLD LATERAL MYOCARDIAL INFARCTION COMPARED TO ECG 10/13/2021 08:29:15 SINUS BRADYCARDIA NOW PRESENT LEFT-AXIS DEVIATION NOW PRESENT INTRAVENTRICULAR CONDUCTION DELAY NOW PRESENT LEFT VENTRICULAR HYPERTROPHY NOW PRESENT ST (T WAVE) DEVIATION NOW PRESENT Electronically Signed On 12-07-2021 13:17:28 CDT by Soheila Nath M.D.
[2021-12-07] MEDS: IPRATROPIUM 0.5 MG/ALBUTEROL SULFATE 2.5 MG AMPUL.NEB 3 ML INHALATION (13:12)
[2021-12-07 13:25] LABS: Appearance Urine Clear (Clear); Bilirubin Urine Negative (Negative); Blood Urine Negative (Negative); Color Urine Dark Yellow (Yellow); Glucose Urine UA Negative (Negative); Ketones Urine Negative (Negative); Leukocyte Esterase Ur Negative (Negative); Nitrate Urine Negative (Negative); Protein Urine Negative (Negative); Urobilinogen Urine 0.2 mg/dL (0.2-1.0)
[2021-12-07 13:26] LABS: Hematocrit 38.2 % (37.0-46.0); Mean Corpuscular Hemoglobin 36.1 pg (27.0-31.0); Mean Corpuscular Volume 106.1 fL (78.0-102.0); Mean Platelet Volume 9.3 fl (8.7-11.0); Platelet Count Result 267 K/mm3 (150-420); Red Cell Distribution Width 20.4 % (11.6-14.4); White Blood Count 4.1 K/mm3 (4.8-10.8)
[2021-12-07 13:27] LABS: Add Urine Microscopic? NO
[2021-12-07 13:36] LABS: Band Neutrophils Percent 0 % (0-6); Eosinophils Absolute Manual 0.16 K/mm3 (0.02-0.5); Eosinophils Percent Manual 4 % (1-6); Lymphocytes Absolute Manual 0.41 K/mm3 (1.1-4.5); Lymphocytes Percent Manual 10 % (18-44); Monocytes Absolute Manual 0.53 K/mm3 (0.1-0.90); Monocytes Percent Manual 13 % (3-9); Neutrophils Absolute Manual 2.99 K/mm3 (1.3-6.7); Neutrophils Percent Manual 73 % (46-73); Total Cells Counted 100
[2021-12-07 13:37] LABS: Platelet Estimate Adequate (Adequate)
[2021-12-07 13:47] LABS: Influenza Control Valid (Valid); SARS-CoV-2 Ag Negative (Negative)
[2021-12-07 13:48] LABS: Alanine Aminotransferase 17 U/L (16-63); Alkaline Phosphatase 108 U/L (46-116); Anion Gap 3 mmol/L (8-16); Aspartate Amino Transferase 12 U/L (15-37); Bilirubin,Total 0.7 mg/dL (0.00-1.00); Blood Urea Nitrogen 12 mg/dL (7-18); Calcium 8.5 mg/dL (8.5-10.1); Carbon Dioxide 35 mmol/L (21-32); Chloride 93 mmol/L (98-108); Estimated CRCL calculation 74 ml/min; Estimated Glomerular Filt Rate > 60; Glucose 101 mg/dL (70-99); NT Pro B Type Natriuretic Pept 4620 pg/mL (0-125); Osmolality Calculated 271 mOsm/kg (285-295); Potassium 4.2 mmol/L (3.5-5.1); Sodium 131 mmol/L (136-145); Total Protein 5.8 g/dL (6.4-8.2)
[2021-12-07 14:03] LABS: Troponin I 66.1 ng/L (0.00-60.4)
[2021-12-07 14:08] LABS: INR 1.1; Partial Thromboplastin Time 27.3 SEC (23.90-30.70); Prothrombin Time 11.2 Seconds (9.50-12.10)
[2021-12-07 14:19] LABS: D Dimer 0.19 mg/L (0.19-0.50)
--- NOTE | 2021-12-07 14:30 | PC.NURSE ---
1410 dr ch out of pt room, informed of elevated troponin, acknowledged elevation. pt resting per cot. no needs at this time
[2021-12-07] MEDS: FUROSEMIDE 40 MG TABLET 20 MG PO (14:45)
--- NOTE | 2021-12-07 15:03 | PC.NURSE ---
food tray provided for patient.
--- NOTE | 2021-12-07 15:31 | PC.NURSE ---
dr ch spoke with dr ford, spoke with dr high to update related to medication changes.
--- NOTE | 2021-12-07 16:02 | PC.NURSE ---
all discharge instructions explained to [facility]. voiced understanding. pt assisted to car.
--- NOTE | 2021-12-07 16:03 | PC.NURSE ---
copies of labs, ekg, chest xray sent to facility with pt
== END 2021-12-07 16:02 | disposition home or self-care (01) ==
PROVIDERS: Emergency Provider Internal Medicine Critical Care Medicine; PCP Internal Medicine
DX: J44.9 Chronic obstructive pulmonary disease, unspecified (principal); R91.8 Other nonspecific abnormal finding of lung field; E87.1 Hypo-osmolality and hyponatremia; I50.33 Acute on chronic diastolic (congestive) heart failure; Z20.822 Contact with and (suspected) exposure to COVID-19
CPT/HCPCS: 71045; 80053; 81003; 83605; 83880; 84484; 85025; 85380; 85610; 85730; 87426; 87804; 93005; 94640; 99284; A9270; C9803

== ENCOUNTER 2022-01-22 15:42 | Emergency (ER) | payer MEDICARE, MEDICAID, SELFPAY ==
[2022-01-22 15:49] VITALS: BP 170/82; PULSE 58; RESP 16; TEMP 36.8; O2SAT 98
[2022-01-22] MEDS: methylPREDNISolone SOD SUCC 125 MG VIAL IV PUSH (16:04)
--- NOTE | 2022-01-22 16:36 | PC.NURSE ---
patient ambulatory to bathroom without difficulty.
--- NOTE | 2022-01-22 16:52 | ED.ALLEREA ---
HPI - Allergic Reaction General Chief complaint: Allergic Reaction Stated complaint: amb Time Seen by Provider: 01/22/22 15:45 Source: patient, EMS and RN notes reviewed Mode of arrival: EMS Limitations: no limitations History of Present Illness complaint: allergic reaction (upper lip only was mildly swollen) Onset (ago): hour(s) (2) Exposure: medication Known history of allergy to: see nurses notes Symptoms: lip swelling Severity: mild Treatment prior to arrival: benadryl Previous Allergic Reaction History: prior ED visit(s) and angioedema Related Data Home Medications Medication Instructions Recorded Confirmed acetaminophen 500 mg capsule 500 mg PO Q6H PRN 10/17/19 01/22/22 aspirin 81 mg tablet,delayed 81 mg PO DAILY 10/17/19 01/22/22 release carvedilol 12.5 mg tablet 12.5 mg PO BID tablet 10/17/19 01/22/22 diphenhydramine HCl 50 mg capsule 50 mg PO Q6H PRN 10/17/19 01/22/22 folic acid 1 mg tablet 1 mg PO DAILY 10/17/19 01/22/22 lisinopril 20 mg tablet 20 mg PO BID 10/17/19 01/22/22 risperidone 2 mg tablet 2 mg PO BID 10/17/19 01/22/22 famotidine 20 mg tablet 20 mg PO BID tablet 10/20/19 01/22/22 Trelegy Ellipta 1 inh INHALATION DAILY 07/29/20 01/22/22 ferrous sulfate 325 mg PO DAILY 07/29/20 01/22/22 ethambutol 1,000 mg PO DAILY 10/11/20 01/22/22 rifampin 600 mg PO DAILY 10/11/20 01/22/22 topiramate 50 mg PO BID 10/13/21 01/22/22 divalproex 125 mg PO BID 12/07/21 01/22/22 Allergies Allergy/AdvReac Type Severity Reaction Status Date / Time lisinopril Allergy Swelling Verified 01/22/22 16:37 of Lip/Tongue/Throat Sulfa (Sulfonamide Allergy Rash Verified 07/16/20 01:03 Antibiotics) Review of Systems Review of Systems: All systems reviewed & are unremarkable except as noted in HPI and below PMFSH Past Medical History Medical History Angio-edema Bipolar 2 disorder Body mass index [BMI] 20.0-20.9, adult (03/17/19) Chronic obstructive pulmonary disease, unspecified Chronic systolic heart failure [place] (dyspnea on exertion) Dyslipidemia Essential hypertension Rectal cancer Smoking Unspecified systolic (congestive) heart failure Family History Family History Other Family history non-contributory Social History Social History Smoking packs per day: 2 Smoking cigarettes per day: 40.0 Years smoked: 50 Smoking pack-years: 100.00 Smoking status: Current every day smoker Tobacco type: cigarettes Second hand tobacco smoke exposure: No Alcohol intake: unknown Drinks per week: 0 Substance use: unknown Gender identity (if verbalized by the patient): Male Sexual Orientation (if Verbalized by the Patient): Straight or Heterosexual Spiritual care concerns: No Agree to blood products: Yes Exam Const: General: no acute distress and alert Nutritional Appearance: thin Orientation/consciousness: patient oriented x3 Limitations: no limitations HENMT: Ears: TM's normal bilaterally General nose exam: Normal external nose present and Normal nares present Face and sinus: sinuses nontender Mouth: Yes lip normal (mildly swollen upper lip. no acute wheezing or stridor.) and Yes moist mucous membranes Throat: posterior oropharynx normal Eyes: Conjunctivae: conjunctivae normal Pupils: Equal, round and reactive pupils present EOM: EOMs intact bilaterally Neck: Neck: normal visual inspection and no lymphadenopathy Chest: Chest palpation & inspection: normal inspection of the chest Resp: Effort & Inspection: normal respiratory effort Auscultation: clear to auscultation bilaterally Cardio: Rate: regular rate Rhythm: regular rhythm GI: GI Palp: Yes Soft to palpation and No Tenderness to palpation present (GI) Auscultation: normal bowel sounds : General: Yes bladder normal to palpation and Yes no CV
[2022-01-22 17:33] VITALS: BP 165/76; PULSE 59; RESP 16; TEMP 36.4; O2SAT 94
== END 2022-01-22 17:50 | disposition home or self-care (01) ==
PROVIDERS: Emergency Provider Emergency Medicine; PCP Internal Medicine
DX: T78.3XXA Angioneurotic edema, initial encounter (principal)
CPT/HCPCS: 96374; 99284; J2930